=== PATIENT | male | born 1965 | race Caucasian/White ===

== ENCOUNTER 2018-10-05 16:58 | Inpatient (IN) ==
[2018-10-05] MEDS ORDERED: 0.9 % Sodium Chloride 1,000 ML ONE ×2 (17:30→21:11)
[2018-10-05 17:48] LABS: Bilirubin,Urine Negative (Negative); Blood,Urine Large (Negative); Clarity,Urine Cloudy (Clear); Color,Urine Yellow (Yellow); Glucose,Urine (UA) Normal (Normal); Ketones,Urine Trace mg/dL (Negative); Leukocyte Esterase,Urine Small (Negative); Nitrite,Urine Positive (Negative); Protein,Urine 100 mg/dL (Neg-Trace); Specific Gravity,Urine >= 1.030 (1.010-1.025); Urobilinogen,Urine Normal (Normal)
[2018-10-05] MEDS: 0.9 % Sodium Chloride 1,000 ML IVC SCH ×3 (17:50→22:50)
[2018-10-05] MEDS ORDERED: cefTRIAXone 2,000 MG in Water for inj. (sterile) 20 ML 20 ML IVP ONE (17:51)
[2018-10-05 17:56] LABS: Bacteria,Urine Many per hpf (None-Few); RBC,Urine 15-30 per hpf (0-3); Squamous Epithelial Cell,Urine Few per lpf (None-Few); WBC,Urine 15-30 per hpf (0-3)
[2018-10-05 17:58] LABS: Mucus,Urine Few (Few)
[2018-10-05 18:00] LABS: Amphetamine Screen,Urine Negative ng/mL (Cutoff=1000); Barbiturate Screen,Urine Negative ng/mL (Cutoff=200); Benzodiazepines Screen,Urine Negative ng/mL (Cutoff=200); Cannabinoid Screen,Urine Negative ng/mL (Cutoff = 50); Cocaine Screen,Urine Negative ng/mL (Cutoff= 300); Opiate Screen,Urine Negative ng/mL (Cutoff=300); Phencyclidine Screen,Urine Negative ng/mL (Cutoff=25)
--- NOTE | 2018-10-05 18:05 | Emergency Department Note ---
Disposition Clinical Impression: UTI (urinary tract infection) Qualifiers: Encounter type: initial encounter Sepsis Qualifiers: Sepsis type: sepsis due to unspecified organism Qualified Code(s): A41.9 - Sepsis, unspecified organism Disposition: Admitted As Inpatient Time of Disposition: 18:50 (Dr Bean accepted him) Weakness HPI - General Chief complaint: ED General Medical Stated complaint: lethargic, not self Time Seen by Provider: 10/05/18 17:29 Source: EMS Limitations: no limitations Nursing Notes Reviewed: Yes Vital Signs Reviewed: Yes - History of Present Illness HPI Narrative: Patient is a pleasant 53-year-old male with past medical history significant for HTN, DM, Dyslipidemia and arthritis who is presenting to [facility] Emergency Room with a chief complaint off altered mental status, was found unr esponsive at SNF. EMS found him hypoxic and tachypneaic so they gave albuterol inhaler. Pt in ER was challenged and remained pulse OX at 94% RA. He is noted to be febrile at 103. Patient is poor historian. Patient denies any eye pain or visual disturbances. There is no sore throat, nasal drainages or facial congestion. There is no chest pain, palpitations or racing heart. Pt also denies any shortness of breath, cough or chest congestion. There is no abdominal pain, nausea, vomiting or diarrhea. There is no urgency, frequency or dysuria. There is no muskulo-skeletal pain, arthralgia or back pain. Patient also denies any rash, edema or pruritus. There is no neurological manifestations, no headache, no vertigo or weakness. The patient also denies any anxiety, depression, hallucinations and has no homicidal or suicidal ideations. There is no polyuria, polydipsia or recent weight change. There is no easy bruising or bleeding. Review of other systems is otherwise negative except above. Pt Subjective Complaint: generalized weakness/fatigue Onset (ago): Just [facility] Duration: constant Location: generalized Migration: none Pain Severity: none Pain Scale: 0 - Related Data Home Medications Medication Instructions Recorded Confirmed Acetaminophen [Tylenol] 325 mg PO Q6HR PRN 02/20/17 10/05/18 Docusate [Colace] 100 mg PO BID PRN 02/20/17 10/05/18 Fluticasone Propionate Nasal 1 spray NS DAILY 02/20/17 10/05/18 [Flonase] Glimepiride [Amaryl] 2 mg PO BID 02/20/17 10/05/18 Lactulose 45 ml PO DAILY PRN 02/20/17 10/05/18 Loperamide HCl [Imodium A-D] 2 mg PO 8XD PRN 02/20/17 10/05/18 Loratadine [Allergy Relief] 10 mg PO DAILY 02/20/17 10/05/18 Metformin HCl [Glucophage] 1,000 mg PO BID 02/20/17 10/05/18 Metoprolol XL (24 HR) Succ [Toprol 50 mg PO DAILY 02/20/17 10/05/18 XL] Multivit-Min/Iron Fum/Folic AC 1 tab PO DAILY 02/20/17 10/05/18 [Ihxxs-Nrwbibh-Cyplznqf Tablet] Nitroglycerin [Nitrostat] 0.4 mg SL AD PRN 02/20/17 10/05/18 Oxycodone HCl [Oxycodone HCl ER] 15 mg PO Q8H PRN 02/20/17 10/05/18 Pravastatin Sodium [Pravachol] 40 mg PO DAILY 02/20/17 10/05/18 Sennosides [Senna] 8.6 mg PO DAILY 02/20/17 10/05/18 Tizanidine HCl [Zanaflex] 4 mg PO TID PRN 02/20/17 10/05/18 Trihexyphenidyl HCl 2 mg PO BID 02/20/17 10/05/18 Warfarin [Coumadin] 6 mg PO DAILY 02/20/17 10/05/18 Warfarin [Coumadin] 10 mg PO DAILY 02/20/17 10/05/18 carBAMazepine [Tegretol] 200 mg PO BID 02/20/17 10/05/18 hydrOXYzine HCl [Hydroxyzine HCl] 50 mg PO TID PRN 02/20/17 10/05/18 risperiDONE [RisperDAL] 0.5 mg PO DAILY 02/20/17 10/05/18 risperiDONE [RisperDAL] 0.25 mg PO DAILY 05/08/17 10/05/18 Betamethasone/Propylene Glyc 1 appl TP TID 05/22/17 10/05/18 [Betamethasone Dp Aug 0.05% Lot] Mag Hydrox/Aluminum Hyd/Simeth 15 ml PO Q4H PRN 05/22/17 10/05/18 [Cvs Antacid-Antigas Liquid] Loratadine [Claritin] 10 mg PO DAILY 11/13/17 10/05/18 Mag Hydrox/Aluminum Hyd/Simeth 15 ml PO Q4H PRN 11/13/17 10/05/18 [Cvs Antacid Plus Anti-Gas Liq] Omeprazole [PriLOSEC] 40 mg PO DAILY 11/13/17 10/05/18 Allergies Allergy/AdvReac Type Severity Reaction Status Date / Time No Known Allergies Allergy Verified 11/13/17 11:00 All systems ED: reviewed and negative except as stated. Review of Systems: As Per HPI Constitutional: Reports: fever. Denies: chills, weakness, weight change Eyes: Denies: eye pain, eye discharge, vision change ENT ED: Denies: ear pain, throat pain, dental pain, hearing loss, epistaxis, congestion, dysphagia Cardiovascular: Denies: chest pain, palpitations, dyspnea on exertion, edema, syncope Respiratory: Denies: cough, dyspnea, wheezes, hemoptysis, stridor Gastrointestinal: Denies: abdominal pain, nausea, vomiting, diarrhea, constipation, hematemesis, melena, hematochezia Genitourinary: Denies: urgency, dysuria, frequency, hematuria Musculoskeletal: Denies: back pain, neck pain, arthralgia, myalgia Integumentary: Denies: rash, abrasion, lesions Neurological: Reports: confusion. Denies: headache, weakness, numbness, paresthesias, abnormal gait, vertigo Psychiatric: Denies: anxiety, depression, suicidal thoughts, homicidal thoughts, auditory hallucinations, visual hallucinations Endocrine: Denies: fatigue Hematological/Lymphatic: Denies: easy bleeding, easy bruising Allergic/Immunologic: Denies: facial swelling, urticaria Past Medical History - Past Medical History Medical history: Reports: diabetes, hyperlipidemia, hypertension, other Surgical history: Reports: no surgical history Psychiatric history: Reports: schizophrenia - Social History Smoking Status: Never smoker Smokeless Tobacco Status: No Alcohol use: Reports: none Drug use: Reports: none Physical Exam - General Limitations: no limitations General appearance: lethargic - Head Head exam: atraumatic, normocephalic, normal inspection - Eye Eye exam: Present: normal appearance, PERRL, EOMI - Expanded Eye Exam Pupils: Left: reactive - ENT ENT exam: normal exam, normal oropharynx, mucous membranes moist - Expanded ENT Exam External ear exam: Present: normal external inspection Mouth exam: Present: normal external inspection Teeth exam: Present: normal inspection Throat exam: Present: normal inspection - Neck Neck exam: Present: normal inspection, full ROM, trachea midline - Chest Chest inspection: Present: normal inspection, symmetric chest wall rise - Respiratory Respiratory exam: Present: normal lung sounds bilaterally - Cardiovascular Cardiovascular exam: Present: regular rate, normal rhythm, normal heart sounds - Abdominal Exam Abdominal exam: Present: soft, Non-Tender. Absent: tenderness, distention, guarding, rebound, rigidity - Extremities Exam Extremities exam: Present: normal inspection, full ROM. Absent: tenderness, pedal edema - Expanded Upper Extremity Exam Shoulder exam: Present: normal inspection, full ROM Arm exam: Present: normal inspection, full ROM Elbow exam: Present: normal inspection, full ROM Forearm/Wrist exam: Present: normal inspection, full ROM Hand exam: Present: normal inspection, full ROM Vascular exam: Normal: capillary refill, radial pulse - Expanded Lower Extremity Exam Hip/Pelvis exam: Present: normal inspection, full ROM Upper leg exam: Present: normal inspection, full ROM Knee exam: Present: normal inspection, full ROM Lower leg exam: Present: normal inspection, full ROM Ankle exam: Present: normal inspection, full ROM Foot/toe exam: Present: normal inspection, full ROM Neurovascular/Tendon exam: Absent: motor deficit, sensory deficit, tendon deficit - Back Exam Back exam: Present: normal inspection, full ROM. Absent: tenderness - Neurological Exam Neurological exam: Present: alert, oriented X3 - Expanded Neurological Exam Patient oriented to: Present: person, place, time Coma Scale Eye Opening: Spontaneous Coma Scale Motor Response: Obeys Commands Coma Scale Verbal Response: Oriented Coma Scale Total: 15 - Psychiatric Psychiatric exam: Present: normal affect, normal mood - Skin Skin exam: Present: warm, dry, intact, normal color Course Vital Signs Temperature 103.7 F H 10/05/18 17:02 Pulse Rate 95 10/05/18 17:02 Respiratory Rate 18 10/05/18 17:02 Blood Pressure 131/66 10/05/18 17:02 O2 Sat by Pulse Oximetry 98 10/05/18 17:02 Temperature 101.7 F H 10/05/18 19:32 Pulse Rate 93 10/05/18 20:23 Respiratory Rate 18 10/05/18 20:23 Blood Pressure 125/68 10/05/18 20:23 O2 Sat by Pulse Oximetry 94 10/05/18 20:23 Oxygen Delivery Oxygen Delivery Room Air Weakness - Differential Diagnosis Differential Diagnosis: Likely: anemia, hypoglycemia, sepsis/infection, dehydr ation, medication effect, metabolic - Medical Records Medical records reviewed: Yes I reviewed the patient's medical records. - Lab Data Lab results reviewed: Yes I reviewed the patient's lab results. Result diagrams: 10/05/18 18:01 10/05/18 18:01 Lab Results 10/05/18 10/05/18 10/05/18 Range/Units 17:20 17:25 18:01 WBC 5.0 (4.3-11.1) K/mcL RBC 3.26 L (4.19-5.50) M/mcL Hgb 8.2 L (12.9-16.9) g/dL Hct 27.2 L (37.5-50.1) % MCV 83.4 (83.0-100.0) fL MCH 25.2 L (28.0-33.3) pg MCHC 30.1 L (31.6-35.5) g/dL RDW 20.9 H (11.5-14.5) % Plt Count 56 L (140-400) K/mcL MPV 10.8 (9.4-12.4) fL Immature Gran % 0.4 (0-4) % Seg Neutrophils % 81.8 % Lymphocytes % 7.8 % Monocytes % 8.0 % Eosinophils % 1.8 % Basophils % 0.2 % Neutrophils # 4.1 (1.6-8.9) K/mcL Lymphocytes # 0.4 L (0.6-4.6) K/mcL Monocytes # 0.4 (0.0-1.3) K/mcL Eosinophils # 0.1 (0.0-0.6) K/mcL Basophils # 0.0 (0.0-0.2) K/mcL PT (9.4-12.1) Seconds INR APTT (26.0-36.0) Seconds Sample Site ABG pH (7.32-7.45) pH Units ABG pCO2 (35-45) mmHg ABG pO2 (85-104) mmHg ABG HCO3 (21-27) mEq/L ABG Total CO2 (20-26) mEq/L ABG O2 Saturation (95-98) % ABG Base Excess (-2 to 3) mEq/L Andrae Test O2 Delivery Device Inspired O2 (1-15=lpm [id number]=%) Sodium (136-145) mEq/L Potassium (3.5-5.1) mEq/L Chloride (98-107) mEq/L Carbon Dioxide (23-29) mEq/L BUN (6-20) mg/dL Creatinine (0.70-1.30) mg/dL Est GFR ( Amer) (> 60) Est GFR (Non-Af Amer) (> 60) BUN/Creatinine Ratio (6-26) Glucose (70-105) mg/dL Calculated Osmolality (280-300) Lactic Acid (0.5-2.2) mmol/L Calcium (8.6-10.3) mg/dL Phosphorus (2.7-4.5) mg/dL Magnesium (1.6-2.6) mg/dL Total Bilirubin (0.3-1.0) mg/dL Direct Bilirubin (0.0-0.2) mg/dL Indirect Bilirubin (0.0-1.2) mg/dL AST (13-39) Units/L ALT (7-52) Units/L Alkaline Phosphatase (34-104) Units/L Troponin I (< 0.04) ng/mL Serum Total Protein (6.4-8.9) g/dL Albumin (3.5-5.7) g/dL Globulin (2.4-3.5) g/dL Albumin/Globulin Ratio (1.1-2.2) Urine Color Yellow (Yellow) Urine Clarity Cloudy A (Clear) Urine pH 7.0 (5.0-8.0) pH Units Ur Specific [place] >= 1.030 H (1.010-1.025) Urine Protein 100 H (Neg-Trace) mg/dL Urine Glucose (UA) Normal (Normal) mg/dL Urine Ketones Trace H (Negative) mg/dL Urine Blood Large H (Negative) Urine Nitrite Positive A (Negative) Urine Bilirubin Negative (Negative) Urine Urobilinogen Normal (Normal) mg/dL Ur Leukocyte Esterase Small H (Negative) Urine Microscopic RBC 15-30 H (0-3) per hpf Urine Microscopic WBC 15-30 H (0-3) per hpf Ur Squamous Epith Cells Few (None-Few) per lpf Urine Bacteria Many H (None-Few) per hpf Urine Mucus Few (Few) Ur Culture Indicated? YES A (NO) Urine Opiates Screen Negative (Sgpmga=902) ng/mL Ur Oxycodone Screen Positive H (Cutoff= 100) ng/mL Ur Barbiturates Screen Negative (Fysclq=215) ng/mL Ur Phencyclidine Scrn Negative (Cutoff=25) ng/mL Ur Amphetamines Screen Negative (Rvwdrn=4261) ng/mL U Benzodiazepines Scrn Negative (Eeszfa=792) ng/mL Urine Cocaine Screen Negative (Cutoff= 300) ng/mL U Marijuana (THC) Screen Negative (Cutoff = 50) ng/mL Ur Drug Screen Interp See Below 10/05/18 10/05/18 10/05/18 Range/Units 18:01 18:01 18:01 WBC (4.3-11.1) K/mcL RBC (4.19-5.50) M/mcL Hgb (12.9-16.9) g/dL Hct (37.5-50.1) % MCV (83.0-100.0) fL MCH (28.0-33.3) pg MCHC (31.6-35.5) g/dL RDW (11.5-14.5) % Plt Count (140-400) K/mcL MPV (9.4-12.4) fL Immature Gran % (0-4) % Seg Neutrophils % % Lymphocytes % % Monocytes % % Eosinophils % % Basophils % % Neutrophils # (1.6-8.9) K/mcL Lymphocytes # (0.6-4.6) K/mcL Monocytes # (0.0-1.3) K/mcL Eosinophils # (0.0-0.6) K/mcL Basophils # (0.0-0.2) K/mcL PT 16.2 H (9.4-12.1) Seconds INR 1.4 APTT 26.5 (26.0-36.0) Seconds Sample Site ABG pH (7.32-7.45) pH Units ABG pCO2 (35-45) mmHg ABG pO2 (85-104) mmHg ABG HCO3 (21-27) mEq/L ABG Total CO2 (20-26) mEq/L ABG O2 Saturation (95-98) % ABG Base Excess (-2 to 3) mEq/L Andrea Test O2 Delivery Device Inspired O2 (1-15=lpm [id number]=%) Sodium 138 (136-145) mEq/L Potassium 3.6 (3.5-5.1) mEq/L Chloride 104 (98-107) mEq/L Carbon Dioxide 26 (23-29) mEq/L BUN 8 (6-20) mg/dL Creatinine 0.72 (0.70-1.30) mg/dL Est GFR ( Amer) > 60 (> 60) Est GFR (Non-Af Amer) > 60 (> 60) BUN/Creatinine Ratio 11 (6-26) Glucose 125 H (70-105) mg/dL Calculated Osmolality 286 (280-300) Lactic Acid 1.2 (0.5-2.2) mmol/L Calcium 8.1 L (8.6-10.3) mg/dL Phosphorus 1.4 L (2.7-4.5) mg/dL Magnesium 1.6 (1.6-2.6) mg/dL Total Bilirubin 0.6 (0.3-1.0) mg/dL Direct Bilirubin 0.1 (0.0-0.2) mg/dL Indirect Bilirubin 0.5 (0.0-1.2) mg/dL AST 21 (13-39) Units/L ALT 16 (7-52) Units/L Alkaline Phosphatase 66 (34-104) Units/L Troponin I < 0.03 (< 0.04) ng/mL Serum Total Protein 6.0 L (6.4-8.9) g/dL Albumin 3.5 (3.5-5.7) g/dL Globulin 2.5 (2.4-3.5) g/dL Albumin/Globulin Ratio 1.4 (1.1-2.2) Urine Color (Yellow) Urine Clarity (Clear) Urine pH (5.0-8.0) pH Units Ur Specific [place] (1.010-1.025) Urine Protein (Neg-Trace) mg/dL Urine Glucose (UA) (Normal) mg/dL Urine Ketones (Negative) mg/dL Urine Blood (Negative) Urine Nitrite (Negative) Urine Bilirubin (Negative) Urine Urobilinogen (Normal) mg/dL Ur Leukocyte Esterase (Negative) Urine Microscopic RBC (0-3) per hpf Urine Microscopic WBC (0-3) per hpf Ur Squamous Epith Cells (None-Few) per lpf Urine Bacteria (None-Few) per hpf Urine Mucus (Few) Ur Culture Indicated? (NO) Urine Opiates Screen (Zlfipp=759) ng/mL Ur Oxycodone Screen (Cutoff= 100) ng/mL Ur Barbiturates Screen (Mvpuwq=069) ng/mL Ur Phencyclidine Scrn (Cutoff=25) ng/mL Ur Amphetamines Screen (Mowsdb=2002) ng/mL U Benzodiazepines Scrn (Dkbvkd=127) ng/mL Urine Cocaine Screen (Cutoff= 300) ng/mL U Marijuana (THC) Screen (Cutoff = 50) ng/mL Ur Drug Screen Interp 10/05/18 Range/Units 18:15 WBC (4.3-11.1) K/mcL RBC (4.19-5.50) M/mcL Hgb (12.9-16.9) g/dL Hct (37.5-50.1) % MCV (83.0-100.0) fL MCH (28.0-33.3) pg MCHC (31.6-35.5) g/dL RDW (11.5-14.5) % Plt Count (140-400) K/mcL MPV (9.4-12.4) fL Immature Gran % (0-4) % Seg Neutrophils % % Lymphocytes % % Monocytes % % Eosinophils % % Basophils % % Neutrophils # (1.6-8.9) K/mcL Lymphocytes # (0.6-4.6) K/mcL Monocytes # (0.0-1.3) K/mcL Eosinophils # (0.0-0.6) K/mcL Basophils # (0.0-0.2) K/mcL PT (9.4-12.1) Seconds INR APTT (26.0-36.0) Seconds Sample Site R Brach ABG pH 7.41 (7.32-7.45) pH Units ABG pCO2 40 (35-45) mmHg ABG pO2 77 L (85-104) mmHg ABG HCO3 25 (21-27) mEq/L ABG Total CO2 27 H (20-26) mEq/L ABG O2 Saturation 95 (95-98) % ABG Base Excess 1 (-2 to 3) mEq/L Andrea Test N/A O2 Delivery Device Cannula Inspired O2 2.0 (1-15=lpm [id number]=%) Sodium (136-145) mEq/L Potassium (3.5-5.1) mEq/L Chloride (98-107) mEq/L Carbon Dioxide (23-29) mEq/L BUN (6-20) mg/dL Creatinine (0.70-1.30) mg/dL Est GFR ( Amer) (> 60) Est GFR (Non-Af Amer) (> 60) BUN/Creatinine Ratio (6-26) Glucose (70-105) mg/dL Calculated Osmolality (280-300) Lactic Acid (0.5-2.2) mmol/L Calcium (8.6-10.3) mg/dL Phosphorus (2.7-4.5) mg/dL Magnesium (1.6-2.6) mg/dL Total Bilirubin (0.3-1.0) mg/dL Direct Bilirubin (0.0-0.2) mg/dL Indirect Bilirubin (0.0-1.2) mg/dL AST (13-39) Units/L ALT (7-52) Units/L Alkaline Phosphatase (34-104) Units/L Troponin I (< 0.04) ng/mL Serum Total Protein (6.4-8.9) g/dL Albumin (3.5-5.7) g/dL Globulin (2.4-3.5) g/dL Albumin/Globulin Ratio (1.1-2.2) Urine Color (Yellow) Urine Clarity (Clear) Urine pH (5.0-8.0) pH Units Ur Specific [place] (1.010-1.025) Urine Protein (Neg-Trace) mg/dL Urine Glucose (UA) (Normal) mg/dL Urine Ketones (Negative) mg/dL Urine Blood (Negative) Urine Nitrite (Negative) Urine Bilirubin (Negative) Urine Urobilinogen (Normal) mg/dL Ur Leukocyte Esterase (Negative) Urine Microscopic RBC (0-3) per hpf Urine Microscopic WBC (0-3) per hpf Ur Squamous Epith Cells (None-Few) per lpf Urine Bacteria (None-Few) per hpf Urine Mucus (Few) Ur Culture Indicated? (NO) Urine Opiates Screen (Slslka=440) ng/mL Ur Oxycodone Screen (Cutoff= 100) ng/mL Ur Barbiturates Screen (Kxockt=650) ng/mL Ur Phencyclidine Scrn (Cutoff=25) ng/mL Ur Amphetamines Screen (Fcfkvp=5239) ng/mL U Benzodiazepines Scrn (Jriyjt=298) ng/mL Urine Cocaine Screen (Cutoff= 300) ng/mL U Marijuana (THC) Screen (Cutoff = 50) ng/mL Ur Drug Screen Interp - Radiology Data Radiology results reviewed: Yes I reviewed the patient's radiology results. Negative CXR - EKG Data EKG attestation: Yes I reviewed and interpreted this EKG. EKG shows normal: sinus rhythm Rate: normal Rhythm: NSR
[2018-10-05 18:18] LABS: ABG Base Excess 1 mEq/L (-2 to 3); ABG HCO3 25 mEq/L (21-27); ABG Oxygen Saturation 95 % (95-98); ABG PCO2 40 mmHg (35-45); ABG PH 7.41 pH Units (7.32-7.45); ABG PO2 77 mmHg (85-104); ABG TCO2 27 mEq/L (20-26)
[2018-10-05 18:18] LABS: Basophils % 0.2 %; Eosinophils # 0.1 K/mcL (0.0-0.6); Eosinophils % 1.8 %; Hematocrit 27.2 % (37.5-50.1); Hemoglobin 8.2 g/dL (12.9-16.9); Immature Granulocytes % 0.4 % (0-4); Lymphocytes # 0.4 K/mcL (0.6-4.6); Lymphocytes % 7.8 %; Mean Corpuscular HGB Conc 30.1 g/dL (31.6-35.5); Mean Corpuscular Hemoglobin 25.2 pg (28.0-33.3); Mean Corpuscular Volume 83.4 fL (83.0-100.0); Mean Platelet Volume 10.8 fL (9.4-12.4); Monocytes # 0.4 K/mcL (0.0-1.3); Neutrophils # 4.1 K/mcL (1.6-8.9); Red Blood Count 3.26 M/mcL (4.19-5.50); Red Cell Distribution Width 20.9 % (11.5-14.5); Segmented Neutrophils % 81.8 %
[2018-10-05 18:20] LABS: Platelet Count 56 K/mcL (140-400)
[2018-10-05 18:26] LABS: INR 1.4; Prothrombin Time 16.2 Seconds (9.4-12.1)
[2018-10-05 18:28] LABS: Activated Partial Thrombo Time 26.5 Seconds (26.0-36.0)
[2018-10-05 18:37] LABS: Alanine Aminotransferase 16 Units/L (7-52); Albumin 3.5 g/dL (3.5-5.7); Albumin/Globulin Ratio 1.4 (1.1-2.2); Alkaline Phosphatase 66 Units/L (34-104); Aspartate Amino Transferase 21 Units/L (13-39); BUN/Creatinine Ratio 11 (6-26); Bilirubin,Direct 0.1 mg/dL (0.0-0.2); Bilirubin,Indirect 0.5 mg/dL (0.0-1.2); Bilirubin,Total 0.6 mg/dL (0.3-1.0); Blood Urea Nitrogen 8 mg/dL (6-20); Calcium 8.1 mg/dL (8.6-10.3); Carbon Dioxide 26 mEq/L (23-29); Chloride 104 mEq/L (98-107); Globulin 2.5 g/dL (2.4-3.5); Glucose 125 mg/dL (70-105); Magnesium 1.6 mg/dL (1.6-2.6); Osmolality,Calculated 286 (280-300); Phosphorous 1.4 mg/dL (2.7-4.5); Potassium 3.6 mEq/L (3.5-5.1); Sodium 138 mEq/L (136-145); Troponin I < 0.03 ng/mL (< 0.04); eGFR For Non-African Americans > 60 (> 60)
[2018-10-05] MEDS ORDERED: Naloxone 0.4 MG/ML INJ IVP PRN ×3 (19:07→21:11)
[2018-10-05] MEDS ORDERED: Nitroglycerin 0.4 MG TAB.SUBL SL PRN (21:11)
[2018-10-05] MEDS ORDERED: Mag Hydrox/Al Hydrox/Simeth 30 ML UDC PO PRN (21:11)
[2018-10-05] MEDS ORDERED: Lactulose 200 GM/300 ML (for enema) RC PRN (21:11)
[2018-10-05] MEDS ORDERED: Acetaminophen 325 MG TABLET PO PRN (21:11)
[2018-10-05] MEDS ORDERED: MOM Conc 10 ML UD.LIQ PO PRN (21:11)
[2018-10-05] MEDS: *HR* Glimepiride 2 MG TABLET PO SCH (22:34)
[2018-10-05] MEDS: carBAMazepine 200 MG TABLET PO SCH (22:49)
[2018-10-06] MEDS ORDERED: Lactulose 200 GM, Sodium Chloride IRRigation 700 ML RC PRN (00:16)
[2018-10-06] MEDS ORDERED: hydrOXYzine pamoate 25 MG CAPSULE PO PRN (00:19)
[2018-10-06] MEDS ORDERED: tiZANidine 4 MG TABLET PO PRN (00:28)
[2018-10-06] MEDS ORDERED: *HR* OxyCODONE Immed Rel 15 MG TABLET PO PRN (00:36)
[2018-10-06] MEDS: PROPYLENE GLYC TP SCH ×4 (01:14→22:53)
[2018-10-06] MEDS: BETAMETHASONE TP SCH ×4 (01:14→22:53)
[2018-10-06] MEDS: *HR* Metformin 500 MG TABLET PO SCH ×3 (05:24→22:52)
[2018-10-06] MEDS ORDERED: *HR* Warfarin 10 MG TABLET PO SCH (09:00)
[2018-10-06] MEDS ORDERED: Loratadine 10 MG TABLET PO SCH (09:00)
[2018-10-06] MEDS ORDERED: *HR* Warfarin 3 MG TABLET PO SCH (09:00)
[2018-10-06] MEDS: Loratadine 10 MG TABLET PO SCH (09:53)
[2018-10-06] MEDS: Multivit/Ca/Min/Fe/FA 1 TAB TABLET PO SCH (09:53)
[2018-10-06] MEDS: Metoprolol XL (24 HR) Succ 50 MG TAB.ER.24H PO SCH (09:53)
[2018-10-06] MEDS: carBAMazepine 200 MG TABLET PO SCH ×2 (09:53→22:40)
[2018-10-06] MEDS: *HR* Rivaroxaban 10 MG TABLET PO SCH (09:53)
[2018-10-06] MEDS: *HR* Glimepiride 2 MG TABLET PO SCH ×2 (09:54→22:52)
[2018-10-06] MEDS: risperiDONE 0.25 MG TABLET PO SCH ×2 (09:54→10:57)
[2018-10-06] MEDS: Fluticasone Propionate Nasal 50 MCG/SPRAY BOTTLE NS SCH (09:59)
[2018-10-06] MEDS: Sennosides 8.6 MG TABLET PO SCH (09:59)
[2018-10-06] MEDS ORDERED: Ibuprofen 600 MG TABLET PO ONE (10:47)
[2018-10-06] MEDS ORDERED: *HR* Dextrose 50 % in Water (Syg) 50 ML SYRINGE IVP PRN (10:54)
[2018-10-06] MEDS ORDERED: D5% in Water 1,000 ML IVC PRN (10:54)
[2018-10-06] MEDS ORDERED: Dextrose Gel 15 GM/37.5 ML TUBE PO PRN ×2 (10:54)
[2018-10-06] MEDS: Insulin LISPRO 300 UNITS/3 ML VIAL SQ SCH ×2 (11:16→15:48)
[2018-10-06 13:30] LABS: Basophils % 0.2 %; Eosinophils # 0.1 K/mcL (0.0-0.6); Eosinophils % 0.9 %; Immature Granulocytes % 0.7 % (0-4); Lymphocytes # 0.6 K/mcL (0.6-4.6); Lymphocytes % 9.5 %; Mean Corpuscular HGB Conc 29.6 g/dL (31.6-35.5); Mean Corpuscular Hemoglobin 24.6 pg (28.0-33.3); Mean Corpuscular Volume 83.1 fL (83.0-100.0); Mean Platelet Volume 10.1 fL (9.4-12.4); Monocytes # 0.3 K/mcL (0.0-1.3); Monocytes % 5.9 %; Neutrophils # 4.8 K/mcL (1.6-8.9); Red Blood Count 3.25 M/mcL (4.19-5.50); Red Cell Distribution Width 22.1 % (11.5-14.5); Segmented Neutrophils % 82.8 %
[2018-10-06 13:31] LABS: Platelet Count 52 K/mcL (140-400)
--- NOTE | 2018-10-06 13:39 | Internal Med History&Physical ---
Date of Encounter: 10/06/18 Time of Encounter: 12:30 Assessment and Plan (1) UTI (urinary tract infection) Current visit: Yes Status: Acute Rocephin was given empirically in emergency room. Urine culture was ordered. Continue Rocephin with lactobacillus. Qualifiers: Urinary tract infection type: site unspecified Hematuria presence: with hematuria Qualified Code(s): N39.0 - Urinary tract infection, site not specified; R31.9 - Hematuria, unspecified (2) Anemia Current visit: Yes Status: Acute Order anemia testing. Monitor CBC. Qualifiers: Anemia type: unspecified type Qualified Code(s): D64.9 - Anemia, unspecified (3) DM type 2 (diabetes mellitus, type 2) Current visit: Yes Status: Chronic Hemoglobin A1c was 6.2% on 08/07/2018. Continue Glucophage and glimepiride. Order Accu-Cheks with SSI. Qualifiers: Diabetes mellitus prison insulin use: without intermediate accountant use Diabetes mellitus complication status: without complication Qualified Code(s): E11.9 - Type 2 diabetes mellitus without complications (4) Thrombocytopenia Current visit: No Status: Chronic Platelet count has been consistently low since 2013. Doubt if 202K on 10/14/2017 was accurate. (5) Edema Current visit: Yes Status: Acute BN peptide was ordered. Qualifiers: Edema type: unspecified Qualified Code(s): R60.9 - Edema, unspecified Internal Medicine - H&P: HPI Chief complaint: Fever, tachypnea Admitted From: Emergency Dept Plans for Post Hospital Care: Home History of present illness: Mr. Rojo is a 53 year old male who was sent from a local SNF after staff reported him to have altered mental status with decreased responsiveness. The emergency room report states EMS found him hypoxic and to. He was evaluated in emergency room and was found to have anemia, normal WBC but left shift, and possible UTI. [facility] for ongoing care needs. He is a fair to poor historian and cannot give reliable additional significant history. Past Med Surg Social Fam HX - Past Medical History Medical history: diabetes, hyperlipidemia, hypertension, other Additional medical history: factor V. tremors. anemia. DVT Psychiatric history: schizophrenia - Past Surgical History Surgical History: no surgical history Additional surgical history: perlita filter - Social History Smoking Status: Never smoker Smokeless Tobacco Status: No Alcohol use: none Drug use: none Internal Medicine - H&P: Meds Acetaminophen [Tylenol] 325 mg PO Q6HR PRN 02/20/17 [History] Docusate [Colace] 100 mg PO BID PRN 02/20/17 [History] Fluticasone Propionate Nasal [Flonase] 1 spray NS DAILY 02/20/17 [History] Glimepiride [Amaryl] 2 mg PO BID 02/20/17 [History] Lactulose 45 ml PO DAILY PRN 02/20/17 [History] Loperamide HCl [Imodium A-D] 2 mg PO 8XD PRN 02/20/17 [History] Loratadine [Allergy Relief] 10 mg PO DAILY 02/20/17 [History] Metformin HCl [Glucophage] 1,000 mg PO BID 02/20/17 [History] Metoprolol XL (24 HR) Succ [Toprol XL] 50 mg PO DAILY 02/20/17 [History] Multivit-Min/Iron Fum/Folic AC [Tmegx-Zykyzmu-Rqqniuak Tablet] 1 tab PO DAILY 02/20/17 [History] Nitroglycerin [Nitrostat] 0.4 mg SL AD PRN 02/20/17 [History] Oxycodone HCl [Oxycodone HCl ER] 15 mg PO Q8H PRN 02/20/17 [History] Pravastatin Sodium [Pravachol] 40 mg PO DAILY 02/20/17 [History] Sennosides [Senna] 8.6 mg PO DAILY 02/20/17 [History] Tizanidine HCl [Zanaflex] 4 mg PO TID PRN 02/20/17 [History] Trihexyphenidyl HCl 2 mg PO BID 02/20/17 [History] Warfarin [Coumadin] 6 mg PO DAILY 02/20/17 [History] Warfarin [Coumadin] 10 mg PO DAILY 02/20/17 [History] carBAMazepine [Tegretol] 200 mg PO BID 02/20/17 [History] hydrOXYzine HCl [Hydroxyzine HCl] 50 mg PO TID PRN 02/20/17 [History] risperiDONE [RisperDAL] 0.5 mg PO DAILY 02/20/17 [History] risperiDONE [RisperDAL] 0.25 mg PO DAILY 05/08/17 [History] Betamethasone/Propylene Glyc [Betamethasone Dp Aug 0.05% Lot] 1 appl TP TID 05/22/17 [History] Mag Hydrox/Aluminum Hyd/Simeth [Cvs Antacid-Antigas Liquid] 15 ml PO Q4H PRN 05/22/17 [History] Loratadine [Claritin] 10 mg PO DAILY 11/13/17 [History] Mag Hydrox/Aluminum Hyd/Simeth [Cvs Antacid Plus Anti-Gas Liq] 15 ml PO Q4H PRN 11/13/17 [History] Omeprazole [PriLOSEC] 40 mg PO DAILY 11/13/17 [History] Allergy/AdvReac Type Severity Reaction Status Date / Time No Known Allergies Allergy Verified 11/13/17 11:00 All Systems PM: A 10-system review of systems was performed and is negative for pertinent fin dings except as documented above in the HPI. Review of systems: Review of systems is of uncertain accuracy since the patient is a fair to poor historian. Gen.: He states his weight has been stable the past few months Cardiovascular: He has history of hypertension. He has history of DVT but does not recall details. He denies [place] heart failure angina or pulmonary embolus Respiratory: He states he is a lifelong nonsmoker and denies chronic lung disease GI: He states he had abdominal pain without vomiting or diarrhea at the [place] [facility]. He denies disorders of his liver gallbladder or exocrine pancreas : He denies hematuria dysuria or kidney stones Neurologic: He is uncertain if he has history of seizures. He denies large distribution strokes. Endocrine: He has history of DM 2 and hyperlipidemia. He denies thyroid disease. Hematology/oncology: He was unaware he had anemia on all labs since March 2018. He is uncertain if he has history of cancer. Psychiatric: He has history of psychosis but he cannot give details. [place] skeletal: He states he has arthritis but denies gout or other bone joint or muscle disorders. - Constitutional Vitals: Temp Pulse Resp BP Pulse Ox 104 F H 106 16 126/61 91 10/06/18 10:55 10/06/18 10:12 10/06/18 10:12 10/06/18 10:12 10/06/18 10:12 Exam: Gen.: He is a well-developed well-nourished male sitting on the side of bed who appears in no acute distress. He answers questions but accuracy is uncertain HEENT: Head is atraumatic and normocephalic. Eyes: EOMI. There is no scleral icterus. Mouth: Mucosa is moist. Neck: Supple and nontender. There is no thyromegaly or adenopathy noted. Heart: Regular without murmurs gallops or ectopics Lungs: No wheezes or crackles are heard. Abdomen: Soft and nontender. No masses or guarding are noted. Extremities: He has significant chronic venous stasis pigmentation changes of his right lower leg. There are minimal changes in his left lower leg. There is 2+ edema of the dorsum of the right foot and 1-2+ edema of the dorsum the left foot. There is 2+ pitting edema of the lower anterior shins bilaterally. Neurologic: Mental status: He is talkative but a fair to poor historian. Cran ial nerves: Smile is symmetric. Forehead wrinkles bilaterally. Tongue protrudes midline. EOMI. Motor: There is no pronator drift. Cerebellar: Finger to nose is intact bilaterally. Skin: Warm and dry Internal Med - H&P Results - Labs CBC & Chem 7: 10/06/18 13:23 10/05/18 18:01 Labs: Short CBC 10/05/18 10/06/18 Range/Units 18:01 13:23 WBC 5.0 5.8 (4.3-11.1) K/mcL Hgb 8.2 L 8.0 L (12.9-16.9) g/dL Hct 27.2 L 27.0 L (37.5-50.1) % Plt Count 56 L 52 L (140-400) K/mcL Neutrophils # 4.1 4.8 (1.6-8.9) K/mcL BMP 10/05/18 18:01 Sodium 138 Potassium 3.6 Chloride 104 Carbon Dioxide 26 BUN 8 Creatinine 0.72 Glucose 125 H Calcium 8.1 L Cardiac Enzymes 10/05/18 Range/Units 18:01 Troponin I < 0.03 (< 0.04) ng/mL Liver Function 10/05/18 Range/Units 18:01 Total Bilirubin 0.6 (0.3-1.0) mg/dL Direct Bilirubin 0.1 (0.0-0.2) mg/dL AST 21 (13-39) Units/L ALT 16 (7-52) Units/L Alkaline Phosphatase 66 (34-104) Units/L Albumin 3.5 (3.5-5.7) g/dL Urine 10/05/18 Range/Units 17:25 Urine Color Yellow (Yellow) Urine Clarity Cloudy A (Clear) Urine pH 7.0 (5.0-8.0) pH Units Ur Specific [place] >= 1.030 H (1.010-1.025) Urine Protein 100 H (Neg-Trace) mg/dL Urine Glucose (UA) Normal (Normal) mg/dL - ABG Interpretation ABG results: 10/05/18 18:15 ABG pH 7.41 ABG pCO2 40 ABG pO2 77 L ABG HCO3 25 ABG Total CO2 27 H ABG O2 Saturation 95 ABG Base Excess 1 - Impressions ITS Impressions Chest X-Ray 10/05/18 17:36 IMPRESSION: No acute abnormality. Chronic elevation of the left hemidiaphragm may be due to paresis. D/ / 10/05/2018 18:29:55 Jamar Fernandez MD / [email or web address] Interpreting Provider: Jamar Fernandez MD
[2018-10-06 13:52] LABS: Phosphorous 1.4 mg/dL (2.7-4.5)
[2018-10-06] MEDS ORDERED: Acetaminophen 325 MG TABLET PO PRN (14:01)
[2018-10-06] MEDS: cefTRIAXone 1,000 MG in Water for inj. (sterile) 20 ML 10 ML IVP SCH (15:49)
[2018-10-06] MEDS: 0.9 % Sodium Chloride 1,000 ML IVC SCH (16:02)
[2018-10-06 17:35] LABS: Folate 12.4 ng/mL (3.0-16.0)
[2018-10-06 20:35] LABS: Ferritin 70 ng/mL (20-250); Iron < 10 mcg/dL (65-175); Transferrin 249 mg/dL (203-362)
[2018-10-06] MEDS: Lactobacillus 1 EACH CAP.SPRINK PO SCH (22:40)
[2018-10-07 06:38] LABS: Basophils % 0.3 %; Eosinophils # 0.2 K/mcL (0.0-0.6); Eosinophils % 2.8 %; Hematocrit 29.5 % (37.5-50.1); Hemoglobin 8.5 g/dL (12.9-16.9); Immature Granulocytes % 0.6 % (0-4); Lymphocytes # 0.7 K/mcL (0.6-4.6); Lymphocytes % 9.9 %; Mean Corpuscular HGB Conc 28.8 g/dL (31.6-35.5); Mean Corpuscular Hemoglobin 24.5 pg (28.0-33.3); Mean Platelet Volume 10.7 fL (9.4-12.4); Monocytes # 0.5 K/mcL (0.0-1.3); Monocytes % 7.6 %; Neutrophils # 5.2 K/mcL (1.6-8.9); Red Blood Count 3.47 M/mcL (4.19-5.50); Red Cell Distribution Width 22.2 % (11.5-14.5); Segmented Neutrophils % 78.8 %
[2018-10-07 06:40] LABS: Platelet Count 59 K/mcL (140-400)
[2018-10-07 07:07] LABS: Anisocytosis 2+ (Not Present); Hypochromasia Present (Not Present)
[2018-10-07 07:11] LABS: Poikilocytosis 1+ (Not Present); Polychromasia 2+ (Not Present)
[2018-10-07 07:13] LABS: Platelet Estimate Marked Decrease (Normal)
[2018-10-07] MEDS: Insulin LISPRO 300 UNITS/3 ML VIAL SQ SCH ×3 (07:47→17:28)
[2018-10-07] MEDS: Loratadine 10 MG TABLET PO SCH (07:58)
[2018-10-07] MEDS: Lactobacillus 1 EACH CAP.SPRINK PO SCH ×2 (07:58→21:21)
[2018-10-07] MEDS: risperiDONE 0.25 MG TABLET PO SCH ×2 (07:58)
[2018-10-07] MEDS: Metoprolol XL (24 HR) Succ 50 MG TAB.ER.24H PO SCH (07:58)
[2018-10-07] MEDS: *HR* Metformin 500 MG TABLET PO SCH ×2 (07:58→21:20)
[2018-10-07] MEDS: cefTRIAXone 1,000 MG in Water for inj. (sterile) 20 ML 10 ML IVP SCH (07:59)
[2018-10-07] MEDS: Multivit/Ca/Min/Fe/FA 1 TAB TABLET PO SCH (07:59)
[2018-10-07] MEDS: *HR* Rivaroxaban 10 MG TABLET PO SCH (07:59)
[2018-10-07] MEDS: Sennosides 8.6 MG TABLET PO SCH (07:59)
[2018-10-07] MEDS: *HR* Glimepiride 2 MG TABLET PO SCH ×2 (07:59→21:20)
[2018-10-07] MEDS: carBAMazepine 200 MG TABLET PO SCH ×2 (07:59→21:20)
--- NOTE | 2018-10-07 10:20 | Internal Med Progress Note ---
Date of Encounter: 10/07/18 Time of Encounter: 10:12 - Assessment and plan (1) UTI (urinary tract infection) Current Visit: Yes Status: Acute Assessment and plan: October 07. Urine culture report pending. Continue empiric Rocephin with lactobacillus. Qualifiers: Urinary tract infection type: site unspecified Hematuria presence: with hematuria Qualified Code(s): N39.0 - Urinary tract infection, site not specified; R31.9 - Hematuria, unspecified (2) Anemia Current Visit: Yes Status: Acute Assessment and plan: October 07. Anemia testing showed iron < 10, transferrin 249, ferritin 70, B12 515, and folate 12.4. Will order iron sucrose. Qualifiers: Anemia type: unspecified type Qualified Code(s): D64.9 - Anemia, unspecified (3) DM type 2 (diabetes mellitus, type 2) Current Visit: Yes Status: Chronic Assessment and plan: October 07. Hemoglobin A1c was 6.2% on 08/07/2018. Continue Glucophage and glimepiride. Accu-Cheks are acceptable. Qualifiers: Diabetes mellitus mcc insulin use: without intermission coordinator use Diabetes mellitus complication status: without complication Qualified Code(s): E11.9 - Type 2 diabetes mellitus without complications (4) Thrombocytopenia Current Visit: No Status: Chronic Assessment and plan: October 07. Monitor platelet count. (5) Edema Current Visit: Yes Status: Acute Assessment and plan: October 07. BN peptide minimally elevated at 138. Continue to monitor. Qualifiers: Edema type: unspecified Qualified Code(s): R60.9 - Edema, unspecified (6) Hypophosphatemia Current Visit: Yes Status: Acute Assessment and plan: October 07. Improved. Continue Neutra-Phos and monitor labs. - Subjective Interval history: October 07. He has no new complaints and feels better. - Constitutional Vitals: Temp Pulse Resp BP Pulse Ox 98.8 F 96 20 134/63 92 10/07/18 07:37 10/07/18 07:37 10/07/18 07:37 10/07/18 07:37 10/07/18 07:37 Exam: He is resting comfortably in bed and appears in no acute distress. His affect is overall cheerful. He does not appear dyspneic. Extremities show 1+ edema of the lower anterior shins bilaterally. I reviewed his medications and lab results. Internal Medicine: Result - Labs CBC & Chem 7: 10/07/18 05:43 10/05/18 18:01 Labs: Short CBC 18 10/07/18 Range/Units 13:23 05:43 WBC 5.8 6.5 (4.3-11.1) K/mcL Hgb 8.0 L 8.5 L (12.9-16.9) g/dL Hct 27.0 L 29.5 L (37.5-50.1) % Plt Count 52 L 59 L (140-400) K/mcL Neutrophils # 4.8 5.2 (1.6-8.9) K/mcL Urine 10/05/18 Range/Units 17:25 Urine Color Yellow (Yellow) Urine Clarity Cloudy A (Clear) Urine pH 7.0 (5.0-8.0) pH Units Ur Specific [place] >= 1.030 H (1.010-1.025) Urine Protein 100 H (Neg-Trace) mg/dL Urine Glucose (UA) Normal (Normal) mg/dL - ABG Interpretation ABG results: ABG ABG pH 7.41 pH Units (7.32-7.45) 10/05/18 18:15 ABG pCO2 40 mmHg (35-45) 10/05/18 18:15 ABG pO2 77 mmHg (85-104) L 10/05/18 18:15 ABG O2 Saturation 95 % (95-98) 10/05/18 18:15 PT/INR, D-dimer PT 16.2 Seconds (9.4-12.1) H 10/05/18 18:01 Consult Discharge Plan - Plan Referrals: NONE,PCP [Primary Care Provider] - 1 week
[2018-10-07] MEDS ORDERED: Iron Sucrose Complex 400 MG in 0.9 % Sodium Chloride 250 ML IVPB ONE (10:23)
[2018-10-07] MEDS: PROPYLENE GLYC TP SCH ×3 (10:32→21:21)
[2018-10-07] MEDS: BETAMETHASONE TP SCH ×3 (10:32→21:21)
[2018-10-07] MEDS: Fluticasone Propionate Nasal 50 MCG/SPRAY BOTTLE NS SCH (10:32)
--- NOTE | 2018-10-07 19:59 | Electrocardiograph Report ---
[place] [id number] Test Date: 2018-10-05 Pat Name: Melvin Rojo Department: [id number] Room: [facility] Gender: M Yarn Hauler: [id number] : 1965 Requested By: Bette Obando Order Number: [id number] Reading MD: Kaya Bernstein Measurements Intervals [place] Rate: 94 P: 1 NC: 145 QRS: 17 QRSD: 89 T: 23 QT: 332 QTc: 384 Interpretive Statements SINUS RHYTHM Electronically Signed On 10-07-2018 19:57:44 EST by Kaya Bernstein
[2018-10-08 06:40] LABS: Basophils % 0.5 %; Eosinophils # 0.2 K/mcL (0.0-0.6); Eosinophils % 4.5 %; Hematocrit 29.2 % (37.5-50.1); Hemoglobin 8.5 g/dL (12.9-16.9); Immature Granulocytes % 0.2 % (0-4); Lymphocytes # 0.5 K/mcL (0.6-4.6); Lymphocytes % 12.9 %; Mean Corpuscular HGB Conc 29.1 g/dL (31.6-35.5); Mean Corpuscular Hemoglobin 24.4 pg (28.0-33.3); Mean Corpuscular Volume 83.7 fL (83.0-100.0); Mean Platelet Volume 11.4 fL (9.4-12.4); Monocytes # 0.4 K/mcL (0.0-1.3); Monocytes % 9.1 %; Neutrophils # 3.1 K/mcL (1.6-8.9); Red Blood Count 3.49 M/mcL (4.19-5.50); Red Cell Distribution Width 21.8 % (11.5-14.5); Segmented Neutrophils % 72.8 %
[2018-10-08 06:42] LABS: Platelet Count 74 K/mcL (140-400)
[2018-10-08 07:08] VITALS: BP 117/66
[2018-10-08 07:12] LABS: Anisocytosis 2+ (Not Present); Microcytosis Present (Not Present); Ovalocytes 2+ (Not Present); Platelet Estimate Decreased (Normal)
[2018-10-08 07:13] LABS: Polychromasia 1+ (Not Present)
[2018-10-08] MEDS: *HR* Rivaroxaban 10 MG TABLET PO SCH (09:46)
[2018-10-08] MEDS: *HR* Glimepiride 2 MG TABLET PO SCH (09:46)
[2018-10-08] MEDS: *HR* Metformin 500 MG TABLET PO SCH (09:47)
[2018-10-08] MEDS: Sennosides 8.6 MG TABLET PO SCH (09:47)
[2018-10-08] MEDS: carBAMazepine 200 MG TABLET PO SCH (09:49)
--- NOTE | 2018-10-08 10:10 | Discharge Summary ---
Orders not resulted at time of discharge: Pending orders 10/05/18 18:35 Culture,Blood [BC] Stat Date of Encounter: 10/08/18 Time of Encounter: 10:00 - Discharge Diagnosis (1) UTI (urinary tract infection) Priority: Primary Status: Acute Qualifiers: Urinary tract infection type: site unspecified Hematuria presence: with hematuria Qualified Code(s): N39.0 - Urinary tract infection, site not specified; R31.9 - Hematuria, unspecified (2) Anemia Priority: Secondary Status: Acute Qualifiers: Anemia type: unspecified type Qualified Code(s): D64.9 - Anemia, unspecified (3) DM type 2 (diabetes mellitus, type 2) Priority: Secondary Status: Chronic Qualifiers: Diabetes mellitus alf insulin use: without alf use Diabetes mellitus complication status: without complication Qualified Code(s): E11.9 - Type 2 diabetes mellitus without complications (4) Thrombocytopenia Priority: Secondary Status: Chronic (5) Edema Priority: Secondary Status: Acute Qualifiers: Edema type: unspecified Qualified Code(s): R60.9 - Edema, unspecified (6) Hypophosphatemia Priority: Secondary Status: Acute Hospital course: Mr. Rojo is a 53 year old male who was sent from a local SNF after staff reported him to have altered mental status with decreased responsiveness. The emergency room report states EMS found him hypoxic and to. He was evaluated in emergency room and was found to have anemia, normal WBC but left shift, and possible UTI. He was admitted to [facility] floor for ongoing care needs. Initial orders written by the emergency room physician. I saw him on October 06 and performed the history and physical. He was started empirically on Rocephin through emergency room. Lactobacillus was added. Urine culture returned showing Escherichia coli with broad sensitivity. He spiked fevers intermittently during his hospital stay but the peak temperature gradually decreased. On October 08 he was asymptomatic and felt stable for discharge back to the SNF. He will continue with anabiotic and probiotic for 5 additional days. He was started on Neutra-Phos for hypophosphatemia. His serum phosphorus level improved to 2.1 by day of discharge. He will continue with Neutra-Phos for 5 additional days and a level will be checked in 5 days at the senior care. Anemia testing showed iron< 10, transferrin 249, ferritin 70, B12 515, and folate 12.4. He was given a dose of IV iron sucrose 400 mg. He will be started on oral ferrous sulfate with ascorbic acid upon discharge. His PCP can monitor labs. On October 08 he was stable for discharge back to [facility] [place]. He will follow with his PCP Dr. Jackson. - Time Spent with Patient Total time spent providing and/or coordinating discharge services: - Discharge Medications Prescriptions: Lactobacillus [Culturelle] 1 each PO BID 3 Days cap.sprink levoFLOXacin [Levaquin] 500 mg PO DAILY 3 Days tablet Phos-NaK [Neutra-Phos] 1 each PO BID 5 Days powd.pack Home Medications: Acetaminophen [Tylenol] 325 mg PO Q6HR PRN 02/20/17 [History] Docusate [Colace] 100 mg PO BID PRN 02/20/17 [History] Fluticasone Propionate Nasal [Flonase] 1 spray NS DAILY 02/20/17 [History] Glimepiride [Amaryl] 2 mg PO BID 02/20/17 [History] Lactulose 45 ml PO DAILY PRN 02/20/17 [History] Loperamide HCl [Imodium A-D] 2 mg PO 8XD PRN 02/20/17 [History] Loratadine [Allergy Relief] 10 mg PO DAILY 02/20/17 [History] Metformin HCl [Glucophage] 1,000 mg PO BID 02/20/17 [History] Metoprolol XL (24 HR) Succ [Toprol Xl] 50 mg PO DAILY 02/20/17 [History] Multivit-Min/Iron Fum/Folic AC [Rjxqa-Opujsax-Weltmwix Tablet] 1 tab PO DAILY 02/20/17 [History] Nitroglycerin [Nitrostat] 0.4 mg SL AD PRN 02/20/17 [History] Oxycodone HCl [Oxycodone HCl ER] 15 mg PO Q8H PRN 02/20/17 [History] Pravastatin Sodium [Pravachol] 40 mg PO DAILY 02/20/17 [History] Sennosides [Senna] 8.6 mg PO DAILY 02/20/17 [History] Tizanidine HCl [Zanaflex] 4 mg PO TID PRN 02/20/17 [History] Trihexyphenidyl HCl 2 mg PO BID 02/20/17 [History] Warfarin [Coumadin] 6 mg PO DAILY 02/20/17 [History] Warfarin [Coumadin] 10 mg PO DAILY 02/20/17 [History] carBAMazepine [Tegretol] 200 mg PO BID 02/20/17 [History] hydrOXYzine HCl [Hydroxyzine HCl] 50 mg PO TID PRN 02/20/17 [History] risperiDONE [RisperDAL] 0.5 mg PO DAILY 02/20/17 [History] risperiDONE [RisperDAL] 0.25 mg PO DAILY 05/08/17 [History] Betamethasone/Propylene Glyc [Betamethasone Dp Aug 0.05% Lot] 1 appl TP TID 05/22/17 [History] Mag Hydrox/Aluminum Hyd/Simeth [Cvs Antacid-Antigas Liquid] 15 ml PO Q4H PRN 05/22/17 [History] Mag Hydrox/Aluminum Hyd/Simeth [Cvs Antacid Plus Anti-Gas Liq] 15 ml PO Q4H PRN 11/13/17 [History] Omeprazole [PriLOSEC] 40 mg PO DAILY 11/13/17 [History] Lactobacillus [Culturelle] 1 each PO BID 3 Days cap.sprink 10/08/18 [Rx] Loratadine [Claritin] 10 mg PO DAILY PRN #0 10/08/18 [Rx] Phos-NaK [Neutra-Phos] 1 each PO BID 5 Days powd.pack 10/08/18 [Rx] levoFLOXacin [Levaquin] 500 mg PO DAILY 3 Days tablet 10/08/18 [Rx] Allergies/Adverse Reactions: Allergy/AdvReac Type Severity Reaction Status Date / Time No Known Allergies Allergy Verified 11/13/17 11:00 Date of admission: 10/06/18 18:18 Primary care physician: Avni Jackson M.D. Consults: 10/06/18 01:34 Consult to Structural Technician [CONS] Routine Reason for SW Consult: Patient is from [facility] - Constitutional Vitals: Temp Pulse Resp BP Pulse Ox 98.3 F 91 18 117/66 92 10/08/18 07:05 10/08/18 07:05 10/08/18 07:05 10/08/18 07:05 10/08/18 07:05 - Patient Status Disposition: Transfer SNF - Discharge Instructions Follow Up With: NONE,PCP [Primary Care Provider] - 1 week - Diet and Activity Activity: resume usual activities as tolerated Diet: advance to your usual diet
--- NOTE | 2018-10-08 10:18 | Physician Discharge Referral ---
ExtendedCare Referral Info Transfer To: [facility] Provider in Charge: Nitin Provider in Charge after Transfer: PCP (Manuel) - Diagnosis (1) UTI (urinary tract infection) Priority: Primary Status: Acute (2) Anemia Priority: Secondary Status: Acute (3) DM type 2 (diabetes mellitus, type 2) Priority: Secondary Status: Chronic (4) Thrombocytopenia Priority: Secondary Status: Chronic (5) Edema Priority: Secondary Status: Acute (6) Hypophosphatemia Priority: Secondary Status: Acute Prognosis: Good - Transfer Medications Prescriptions: Ascorbic Acid [C-500] 500 mg PO DAILY 365 Days tablet Ferrous Sulfate 325 mg PO DAILY 365 Days tablet Lactobacillus [Culturelle] 1 each PO BID 3 Days cap.sprink levoFLOXacin [Levaquin] 500 mg PO DAILY 3 Days tablet Phos-NaK [Neutra-Phos] 1 each PO BID 5 Days powd.pack Home Medications: Acetaminophen [Tylenol] 325 mg PO Q6HR PRN 02/20/17 [History] Docusate [Colace] 100 mg PO BID PRN 02/20/17 [History] Fluticasone Propionate Nasal [Flonase] 1 spray NS DAILY 02/20/17 [History] Glimepiride [Amaryl] 2 mg PO BID 02/20/17 [History] Lactulose 45 ml PO DAILY PRN 02/20/17 [History] Loperamide HCl [Imodium A-D] 2 mg PO 8XD PRN 02/20/17 [History] Loratadine [Allergy Relief] 10 mg PO DAILY 02/20/17 [History] Metformin HCl [Glucophage] 1,000 mg PO BID 02/20/17 [History] Metoprolol XL (24 HR) Succ [Toprol Xl] 50 mg PO DAILY 02/20/17 [History] Multivit-Min/Iron Fum/Folic AC [Mhktf-Nufokls-Yvhxuitg Tablet] 1 tab PO DAILY 02/20/17 [History] Nitroglycerin [Nitrostat] 0.4 mg SL AD PRN 02/20/17 [History] Oxycodone HCl [Oxycodone HCl ER] 15 mg PO Q8H PRN 02/20/17 [History] Pravastatin Sodium [Pravachol] 40 mg PO DAILY 02/20/17 [History] Sennosides [Senna] 8.6 mg PO DAILY 02/20/17 [History] Tizanidine HCl [Zanaflex] 4 mg PO TID PRN 02/20/17 [History] Trihexyphenidyl HCl 2 mg PO BID 02/20/17 [History] Warfarin [Coumadin] 6 mg PO DAILY 02/20/17 [History] Warfarin [Coumadin] 10 mg PO DAILY 02/20/17 [History] carBAMazepine [Tegretol] 200 mg PO BID 02/20/17 [History] hydrOXYzine HCl [Hydroxyzine HCl] 50 mg PO TID PRN 02/20/17 [History] risperiDONE [RisperDAL] 0.5 mg PO DAILY 02/20/17 [History] risperiDONE [RisperDAL] 0.25 mg PO DAILY 05/08/17 [History] Betamethasone/Propylene Glyc [Betamethasone Dp Aug 0.05% Lot] 1 appl TP TID 05/22/17 [History] Mag Hydrox/Aluminum Hyd/Simeth [Cvs Antacid-Antigas Liquid] 15 ml PO Q4H PRN 05/22/17 [History] Mag Hydrox/Aluminum Hyd/Simeth [Cvs Antacid Plus Anti-Gas Liq] 15 ml PO Q4H PRN 11/13/17 [History] Omeprazole [PriLOSEC] 40 mg PO DAILY 11/13/17 [History] Ascorbic Acid [C-500] 500 mg PO DAILY 365 Days tablet 10/08/18 [Rx] Ferrous Sulfate 325 mg PO DAILY 365 Days tablet 10/08/18 [Rx] Lactobacillus [Culturelle] 1 each PO BID 3 Days cap.sprink 10/08/18 [Rx] Loratadine [Claritin] 10 mg PO DAILY PRN #0 10/08/18 [Rx] Phos-NaK [Neutra-Phos] 1 each PO BID 5 Days powd.pack 10/08/18 [Rx] levoFLOXacin [Levaquin] 500 mg PO DAILY 3 Days tablet 10/08/18 [Rx] Allergies/Adverse Reactions: Allergy/AdvReac Type Severity Reaction Status Date / Time No Known Allergies Allergy Verified 11/13/17 11:00 - Respiratory Orders Smoking Cessation: Smoking cessation has been advised. For more information, call the [place] Tobacco Quit Line at 3-872-CFQD-NOW. CERTIFICATION: I certify that the transfer of the above named patient to an Extended Care Facility is necessary for the continuing treatment of the diagnosis listed. The above information is true and accurate reflection of patient's current condition. Confidential - Redisclosure prohibited without a patient's written consent.
[2018-10-08] MEDS: Loratadine 10 MG TABLET PO SCH (10:21)
[2018-10-08] MEDS: Insulin LISPRO 300 UNITS/3 ML VIAL SQ SCH (10:21)
[2018-10-08] MEDS: Lactobacillus 1 EACH CAP.SPRINK PO SCH (10:21)
[2018-10-08] MEDS: Fluticasone Propionate Nasal 50 MCG/SPRAY BOTTLE NS SCH (10:22)
[2018-10-08] MEDS: cefTRIAXone 1,000 MG in Water for inj. (sterile) 20 ML 10 ML IVP SCH (10:22)
[2018-10-08] MEDS: BETAMETHASONE TP SCH (10:22)
[2018-10-08] MEDS: risperiDONE 0.25 MG TABLET PO SCH ×2 (10:22)
[2018-10-08] MEDS: PROPYLENE GLYC TP SCH (10:22)
[2018-10-08] MEDS: Multivit/Ca/Min/Fe/FA 1 TAB TABLET PO SCH (10:27)
[2018-10-08] MEDS: Metoprolol XL (24 HR) Succ 50 MG TAB.ER.24H PO SCH (10:27)
== END 2018-10-08 11:15 | DRG 690 ==
LOC: EMEROOPIK 16:58 → INPPIK 16:58
PROVIDERS: ADMIT Internal Medicine; ATTEND Internal Medicine

== ENCOUNTER 2019-03-24 14:47 | Observation (INO) ==
--- NOTE | 2019-03-24 14:58 | Emergency Department Note ---
Disposition Clinical Impression: Hyperammonemia, Respiratory insufficiency Cirrhosis Qualifiers: Hepatic cirrhosis type: unspecified hepatic cirrhosis Ascites presence: with ascites Qualified Code(s): K74.60 - Unspecified cirrhosis of liver Ascites Qualifiers: Ascites type: other type Qualified Code(s): R18.8 - Other ascites Disposition: Admitted As Inpatient Condition: Fair Referrals: Avni Jackson MD [Primary Care Provider] - Forms: ED Satisfaction Letter, Work/School Release Altered Mental Status HPI - General Chief Complaint: ED General Medical Stated Complaint: decreased appetite, increased tremors, Time Seen by Provider: 03/24/19 14:50 Source: patient, EMS, other (Dr. Jackson, [facility] report) Mode of arrival: EMS Limitations: no limitations Nursing Notes Reviewed: Yes Vital Signs Reviewed: Yes - History of Present Illness HPI Narrative: [facility] arrives from [facility] with a varied histories. The [facility] called to report that he had decreased activity and interaction, was not speaking was not ambulatory. They state he was incontinent of urine and he was dusky. They noted that he was on a couple liters by nasal cannula but normally would be on room air. He had had recent lab work which showed some abnormalities over the last 4 months but these were not specified. They also advised that a chest x-ray which showed an elevated left hemidiaphragm. They have called to Dr. Jackson and were advised that he should come here for CT of his chest, abdomen and further workup. When the squad arrived they stated they had a similar initial history but he was sitting, alert and looking about. He was easily conversive and denied anything other than some chronic low back pain. He had tremors which they knew to be chronic and had an Accu-Chek of 131. He was transported without event. On arrival here he states "I feel pretty good now sir". He admits to "I was feeling pretty bad", "I felt out of it" and "I feel okay now". He denies any new pain. He denies headache or abnormality in vision. He does not feel confused. He denies any abnormal neck or back pain. He denies chest pain, cough or shortness of breath. Denies abdominal pain, nausea, vomiting or diarrhea. He denies fevers does admit some chills. Denies any extremity numbness, tingling or weakness but does report some chronic discomfort in the right leg with a known DVT. He denies a recent fall or injury. He states he has been on his normal medicines. He does not know about any ill exposures. His abdomen appears distended and is a little firm but he states this is normal for him. On arrival I have asked him his name, birthdate and which hospital he is in. He is answered all 3 immediately and accurately. MD complaint: altered mental status, confusion, decreased responsiveness, weakness Onset (ago): hour(s) Timing confirmed by: caregiver Pain Severity: none Consistency of Symptoms: waxing and waning (Currently resolved) - Related Data Home Medications Medication Instructions Recorded Confirmed Acetaminophen [Tylenol] 650 mg PO Q6HR PRN 02/20/17 03/24/19 Docusate [Colace] 100 mg PO BID PRN 02/20/17 03/24/19 Fluticasone Propionate Nasal 1 spray NS DAILY 02/20/17 03/24/19 [Flonase] Glimepiride [Amaryl] 2 mg PO BID 02/20/17 03/24/19 Lactulose 45 ml PO DAILY PRN 02/20/17 03/24/19 Loperamide HCl [Imodium A-D] 2 mg PO 8XD PRN 02/20/17 03/24/19 Loratadine [Allergy Relief] 10 mg PO DAILY 02/20/17 03/24/19 Metformin HCl [Glucophage] 1,000 mg PO BID 02/20/17 03/24/19 Metoprolol XL (24 HR) Succ [Toprol 50 mg PO DAILY 02/20/17 10/05/18 Xl] Multivit-Min/Iron Fum/Folic AC 1 tab PO DAILY 02/20/17 03/24/19 [Yhlvb-Rdyjsyn-Jchrsfuc Tablet] Nitroglycerin [Nitrostat] 0.4 mg SL AD PRN 02/20/17 03/24/19 Oxycodone HCl [Oxycodone HCl ER] 15 mg PO Q8H PRN 02/20/17 03/24/19 Pravastatin Sodium [Pravachol] 40 mg PO DAILY 02/20/17 03/24/19 Sennosides [Senna] 8.6 mg PO DAILY 02/20/17 03/24/19 Tizanidine HCl [Zanaflex] 2 mg PO TID PRN 02/20/17 10/05/18 Trihexyphenidyl HCl 2 mg PO BID 02/20/17 10/05/18 Warfarin [Coumadin] 6 mg PO DAILY 02/20/17 10/05/18 Warfarin [Coumadin] 10 mg PO DAILY 02/20/17 10/05/18 carBAMazepine [Tegretol] 200 mg PO BID 02/20/17 10/05/18 hydrOXYzine HCl [Hydroxyzine HCl] 50 mg PO TID PRN 02/20/17 03/24/19 risperiDONE [RisperDAL] 0.5 mg PO BID 02/20/17 03/24/19 risperiDONE [RisperDAL] 0.25 mg PO DAILY 05/08/17 10/05/18 Betamethasone/Propylene Glyc 1 appl TP TID 05/22/17 10/05/18 [Betamethasone Dp Aug 0.05% Lot] Mag Hydrox/Aluminum Hyd/Simeth 15 ml PO Q4H PRN 05/22/17 03/24/19 [Cvs Antacid-Antigas Liquid] Mag Hydrox/Aluminum Hyd/Simeth 15 ml PO Q4H PRN 11/13/17 10/05/18 [Cvs Antacid Plus Anti-Gas Liq] Omeprazole [PriLOSEC] 40 mg PO DAILY 11/13/17 03/24/19 Dicyclomine [Bentyl] 10 mg PO TID 03/24/19 03/24/19 Ferrous Sulfate 325 mg PO BID 03/24/19 03/24/19 GuaiFENesin/Dextromethorphan 5 ml PO Q4HR 03/24/19 03/24/19 [Robitussin/DM] Ketoconazole Shampoo [Nizoral 0 ml TP 3XW 03/24/19 03/24/19 Shampoo] Loteprednol Etabonate [Lotemax] 5 ml OP TID 03/24/19 03/24/19 Rivaroxaban [Xarelto] 20 mg PO DAILY 03/24/19 03/24/19 Sucralfate [Carafate] 1 gm PO BID 03/24/19 03/24/19 Tizanidine HCl [Zanaflex] 4 mg PO TID 03/24/19 03/24/19 Topiramate [Topamax] 50 mg PO BID 03/24/19 03/24/19 Triamcinolone Acet 0.1% OINT 1 appl TP BID 03/24/19 03/24/19 [Kenalog] Previous Rx's Medication Instructions Recorded Ascorbic Acid [C-500] 500 mg PO DAILY 365 Days tablet 10/08/18 Loratadine [Claritin] 10 mg PO DAILY PRN #0 10/08/18 Allergies Allergy/AdvReac Type Severity Reaction Status Date / Time No Known Allergies Allergy Verified 11/13/17 11:00 All systems ED: reviewed and negative except as stated. Past Medical History - Past Medical History Attestation: Yes The following information was validated with the patient. Source: patient, old records reviewed, nursing notes reviewed Medical history: Reports: arthritis, cirrhosis, DVT (On Coumadin), diabetes, GERD (Gastritis), hyperlipidemia, hypertension, seizures, other (Tremors, factor V life deficiency, anemia) Surgical history: Reports: IVC Filter Psychiatric history: Reports: schizophrenia, other (Mild intellectual disability) - Social History Smoking Status: Never smoker Smokeless Tobacco Status: No Alcohol use: Reports: none Drug use: Reports: none Physical Exam - General Limitations: no limitations General appearance: alert, in no apparent distress - Head Head exam: atraumatic, normocephalic, normal inspection - Eye Eye exam: Present: normal appearance, PERRL, EOMI. Absent: scleral icterus, conjunctival injection - ENT ENT exam: normal exam, normal oropharynx, mucous membranes moist - Neck Neck exam: Present: normal inspection, full ROM, trachea midline - Chest Chest inspection: Present: normal inspection, symmetric chest wall rise - Respiratory Respiratory exam: Present: normal lung sounds bilaterally. Absent: respiratory distress, wheezes, prolonged expiratory phase - Cardiovascular Cardiovascular exam: Present: regular rate, normal rhythm, normal heart sounds. Absent: tachycardia - Abdominal Exam Abdominal exam: Present: soft, Non-Tender, distention, hyperactive bowel sounds. Absent: guarding, rebound, rigidity, Verduzco's sign, tenderness at McBurney's Point, pulsatile mass, hernia - Extremities Exam Extremities exam: Present: normal inspection, full ROM, normal capillary refill, calf tenderness (Chronic in the right calf with brawny induration.) - Expanded Lower Extremity Exam Neurovascular/Tendon exam: Present: normal capillary refill Gait: not tested/not observed - Neurological Exam Neurological exam: Present: alert, oriented X3, CN II-XII intact. Absent: motor sensory deficit - Psychiatric Psychiatric exam: Present: normal affect, normal mood - Skin Skin exam: Present: warm, dry, intact, normal color. Absent: cyanosis, diaphoresis, pallor Course Course Narrative: I reviewed the patient's recent record. She did have blood drawn today which showed a white count of 2.7, hemoglobin of 8.1 and platelets of 67. His chemistries were remarkable for a BUN of 10 and hematocrit need 0.67. Remainder of his liver functions were unremarkable. I discussed care with Dr. Jackson who advised he does see a temporary staff accountant for his pancytopenia. Dr. Jackson did have some concerns about the abdominal distention, history of altered mental status and a persistent abnormality at the base of one of the lungs. A report was provided from the [facility] and this breath that a "left perihilar infiltrate cannot be completely excluded". I advised him that we were not told of anything but an elevated left hemidiaphragm. Dr. Jackson requested that we do a CT of his chest and abdomen INR, Tegretol level, urinalysis and ABG. These tests have been ordered and we will follow him clinically. 1615: I discussed the patient's evaluation with Dr. Jackson at 4:03 PM. He recommended observation to make sure he is getting his routine medicines and to start regular lactulose. For this purpose have talked to Dr. Taveras and verbal orders have been obtained for his observation. It is noted that we did receive a faxed updated med list and that he is now on Xarelto instead of Coumadin and he is no longer on Tegretol. Vital Signs Temperature 98.6 F 03/24/19 14:51 Pulse Rate 82 03/24/19 14:51 Respiratory Rate 18 03/24/19 14:51 Blood Pressure 138/68 03/24/19 14:51 O2 Sat by Pulse Oximetry 97 03/24/19 14:51 Temperature 98.6 F 03/24/19 14:51 Pulse Rate 88 03/24/19 16:37 Respiratory Rate 16 03/24/19 16:37 Blood Pressure 122/77 03/24/19 16:37 O2 Sat by Pulse Oximetry 92 03/24/19 16:37 Oxygen Delivery Oxygen Delivery Room Air Altered Mental Status - Differential Diagnosis Likely: altered mental status, hypoglycemia, hyponatremia, psychiatric disease, sepsis - Medical Records Medical records reviewed: Yes I reviewed the patient's medical records. - Lab Data Lab results reviewed: Yes I reviewed the patient's lab results. Lab Results 03/24/19 03/24/19 03/24/19 Range/Units 15:17 15:17 15:17 PT 15.1 H (9.4-12.1) Seconds INR 1.3 Sample Site R Radial ABG pH 7.30 L (7.32-7.45) pH Units ABG pCO2 57 H (35-45) mmHg ABG pO2 85 (85-104) mmHg ABG HCO3 28 H (21-27) mEq/L ABG Total CO2 30 H (20-26) mEq/L ABG O2 Saturation 95 (95-98) % ABG Base Excess 1 (-2 to 3) mEq/L Andrea Test N/A O2 Delivery Device Cannula Inspired O2 3.0 (1-15=lpm [id number]=%) Ammonia (16-53) mcmol/L Urine Color (Yellow) Urine Clarity (Clear) Urine pH (5.0-8.0) pH Units Ur Specific [place] (1.010-1.025) Urine Protein (Neg-Trace) mg/dL Urine Glucose (UA) (Normal) mg/dL Urine Ketones (Negative) mg/dL Urine Blood (Negative) Urine Nitrite (Negative) Urine Bilirubin (Negative) Urine Urobilinogen (Normal) mg/dL Ur Leukocyte Esterase (Negative) Ur Culture Indicated? (NO) Carbamazepine < 1 L (4-12) mcg/mL 03/24/19 03/24/19 Range/Units 15:17 16:15 PT (9.4-12.1) Seconds INR Sample Site ABG pH (7.32-7.45) pH Units ABG pCO2 (35-45) mmHg ABG pO2 (85-104) mmHg ABG HCO3 (21-27) mEq/L ABG Total CO2 (20-26) mEq/L ABG O2 Saturation (95-98) % ABG Base Excess (-2 to 3) mEq/L Andrea Test O2 Delivery Device Inspired O2 (1-15=lpm [id number]=%) Ammonia 121 H (16-53) mcmol/L Urine Color Yellow (Yellow) Urine Clarity Clear (Clear) Urine pH 6.0 (5.0-8.0) pH Units Ur Specific [place] >= 1.030 H (1.010-1.025) Urine Protein Negative (Neg-Trace) mg/dL Urine Glucose (UA) Normal (Normal) mg/dL Urine Ketones Negative (Negative) mg/dL Urine Blood Negative (Negative) Urine Nitrite Negative (Negative) Urine Bilirubin Negative (Negative) Urine Urobilinogen Normal (Normal) mg/dL Ur Leukocyte Esterase Negative (Negative) Ur Culture Indicated? NO (NO) Carbamazepine (4-12) mcg/mL - Radiology Data Radiology results reviewed: Yes I reviewed the patient's radiology results. Impressions Abdomen/Pelvis CT 03/24/19 15:01 IMPRESSION: Diaphragmatic eventration accounts for elevated hemidiaphragms. Resultant basilar atelectasis is present. Cirrhotic liver morphology with features of portal venous hypertension, including splenomegaly, portosystemic collaterals and moderate abdominal ascites. Diffuse gallbladder wall thickening is presumably related to chronic hepatocellular disease. Acute cholecystitis could have a similar appearance in the appropriate context. D/ / Fco York / Fco York Interpreting Provider: Fco York Chest CT 03/24/19 15:01 IMPRESSION: Diaphragmatic eventration accounts for elevated hemidiaphragms. Resultant basilar atelectasis is present. Cirrhotic liver morphology with features of portal venous hypertension, including splenomegaly, portosystemic collaterals and moderate abdominal ascites. Diffuse gallbladder wall thickening is presumably related to chronic hepatocellular disease. Acute cholecystitis could have a similar appearance in the appropriate context. D/ / Fco York / Fco York Interpreting Provider: Fco York TPA Checklist - LKW: 3-4.5 hrs Add. Warnings/Precautions Patient/family understanding: The patient/family members have been counseled and understood the risk, benefit, and alternatives of treatment. Critical Care Time Critical Care Time: Yes Total Critical Care Time: 45 Attestation: As this patient did present with signs and symptoms of potential life- threatening illness requiring my urgent intervention, total critical care time in this patient's care has been 45 minutes, not withstanding separately reportable procedures.
[2019-03-24 15:20] LABS: ABG Base Excess 1 mEq/L (-2 to 3); ABG HCO3 28 mEq/L (21-27); ABG Oxygen Saturation 95 % (95-98); ABG PCO2 57 mmHg (35-45); ABG PO2 85 mmHg (85-104); ABG TCO2 30 mEq/L (20-26)
[2019-03-24 15:29] LABS: INR 1.3; Prothrombin Time 15.1 Seconds (9.4-12.1)
[2019-03-24 16:21] LABS: Bilirubin,Urine Negative (Negative); Blood,Urine Negative (Negative); Clarity,Urine Clear (Clear); Color,Urine Yellow (Yellow); Glucose,Urine (UA) Normal (Normal); Ketones,Urine Negative (Negative); Leukocyte Esterase,Urine Negative (Negative); Nitrite,Urine Negative (Negative); Protein,Urine Negative (Neg-Trace); Specific Gravity,Urine >= 1.030 (1.010-1.025); Urobilinogen,Urine Normal (Normal)
[2019-03-24] MEDS ORDERED: Ondansetron 4 MG/2 ML VIAL IVP PRN (18:06)
[2019-03-24] MEDS ORDERED: Nitroglycerin 0.4 MG TAB.SUBL SL PRN (18:06)
[2019-03-24] MEDS ORDERED: NON-FORMULARY MEDICATION 1 EACH EACH (Oxycodone Hcl [Oxycodone Hcl Er] 15 MG) PO PRN (18:06)
[2019-03-24] MEDS ORDERED: Dextrose Gel 15 GM/37.5 ML TUBE PO PRN ×2 (18:06)
[2019-03-24] MEDS ORDERED: D5% in Water 1,000 ML IVC PRN (18:06)
[2019-03-24] MEDS ORDERED: *HR* Dextrose 50 % in Water (Vial) 50 ML VIAL IVP PRN (18:06)
[2019-03-24] MEDS ORDERED: 0.9 % Sodium Chloride 1,000 ML IVC SCH ×2 (18:06→19:30)
[2019-03-24] MEDS ORDERED: Naloxone 0.4 MG/ML INJ IVP PRN (18:06)
[2019-03-24] MEDS ORDERED: *HR* OxyCODONE Immed Rel 5 MG TABLET PO PRN (19:49)
[2019-03-24] MEDS: Insulin LISPRO 300 UNITS/3 ML VIAL SQ SCH (20:17)
[2019-03-24] MEDS: risperiDONE 0.25 MG TABLET PO SCH (21:23)
[2019-03-24] MEDS: LOTEPREDNOL ETABONATE OP SCH (21:23)
[2019-03-24] MEDS: Topiramate 25 MG TABLET PO SCH (21:23)
[2019-03-24] MEDS: Sucralfate 1 GM TABLET PO SCH (21:23)
[2019-03-24] MEDS: tiZANidine 4 MG TABLET PO SCH (21:23)
[2019-03-24] MEDS: *HR* Metformin 500 MG TABLET PO SCH (21:27)
[2019-03-24] MEDS: Lactulose Oral Soln 20 GM/30 ML UDC PO SCH (21:27)
[2019-03-25 05:24] LABS: Basophils % 0.8 %; Eosinophils # 0.2 K/mcL (0.0-0.6); Eosinophils % 7.2 %; Hematocrit 27.4 % (37.5-50.1); Immature Granulocytes % 0.4 % (0-4); Lymphocytes # 0.5 K/mcL (0.6-4.6); Lymphocytes % 21.6 %; Mean Corpuscular HGB Conc 29.2 g/dL (31.6-35.5); Mean Corpuscular Hemoglobin 30.3 pg (28.0-33.3); Mean Corpuscular Volume 103.8 fL (83.0-100.0); Mean Platelet Volume 10.9 fL (9.4-12.4); Monocytes # 0.3 K/mcL (0.0-1.3); Neutrophils # 1.4 K/mcL (1.6-8.9); Red Blood Count 2.64 M/mcL (4.19-5.50); Red Cell Distribution Width 13.6 % (11.5-14.5)
[2019-03-25 05:44] LABS: Phosphorous 3.6 mg/dL (2.7-4.5)
[2019-03-25 05:46] LABS: Platelet Count 65 K/mcL (140-400)
[2019-03-25 06:27] LABS: Platelet Estimate Decreased (Normal)
[2019-03-25] MEDS: *HR* Metformin 500 MG TABLET PO SCH ×2 (07:58→16:11)
[2019-03-25] MEDS: Sucralfate 1 GM TABLET PO SCH ×2 (07:58→21:08)
[2019-03-25] MEDS: tiZANidine 4 MG TABLET PO SCH ×3 (07:58→21:08)
[2019-03-25] MEDS: risperiDONE 0.25 MG TABLET PO SCH ×2 (07:58→21:08)
[2019-03-25] MEDS: Lactulose Oral Soln 20 GM/30 ML UDC PO SCH (07:59)
[2019-03-25] MEDS: Topiramate 25 MG TABLET PO SCH ×2 (07:59→21:08)
[2019-03-25] MEDS: Insulin LISPRO 300 UNITS/3 ML VIAL SQ SCH ×3 (07:59→16:12)
[2019-03-25] MEDS: *HR* Rivaroxaban 10 MG TABLET PO SCH (07:59)
[2019-03-25] MEDS ORDERED: *HR* Glimepiride 2 MG TABLET PO SCH (08:00)
[2019-03-25] MEDS: Fluticasone Propionate Nasal 50 MCG/SPRAY BOTTLE NS SCH (08:08)
[2019-03-25] MEDS: LOTEPREDNOL ETABONATE OP SCH ×3 (08:11→21:12)
[2019-03-25 09:42] LABS: Folate 9.7 ng/mL (3.0-16.0)
--- NOTE | 2019-03-25 10:26 | Internal Med History&Physical ---
Date of Encounter: 03/25/19 Time of Encounter: 10:05 Assessment and Plan (1) Hepatic encephalopathy Current visit: Yes Status: Acute He will be started on rifaximin and scheduled lactulose. (2) History of DVT (deep vein thrombosis) Current visit: Yes Status: Acute Chart reports history of IVC filter placement and factor V Leiden deficiency. He was started on Xarelto in emergency room and Coumadin has been discontinued. (3) DM type 2 (diabetes mellitus, type 2) Current visit: No Status: Chronic Hemoglobin A1c 5.0% on 02/05/2019. Hold Amaryl to avoid hypoglycemia. 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 Continue treatment for HE as per above. Qualifiers: Hepatic cirrhosis type: unspecified hepatic cirrhosis Ascites presence: with ascites Qualified Code(s): K74.60 - Unspecified cirrhosis of liver; R18.8 - Other ascites (5) Pancytopenia Current visit: Yes Status: Acute Likely secondary to cirrhosis. Anemia testing showed iron 98, transferrin saturation 22%, transferrin 314, ferritin 9, B12 496, and folate 9.7. Continue oral ferrous sulfate with ascorbic acid. Internal Medicine - H&P: HPI Chief complaint: Lethargy, confusion Admitted From: Emergency Dept Plans for Post Hospital Care: Home History of present illness: Mr. Rojo is a 54 year old male who was sent to emergency room after staff at the SN[facility] noted him to have altered mental status and decreased ambulation ability. He was evaluated emergency room was found to have pneumonia level CXXI. He was admitted to [facility] floor for ongoing care needs. He states he has had occasional "stabbing" abdominal pain without vomiting or diarrhea at the [place] [facility]. He has been diagnosed with cirrhosis but does not know if etiology has been determined. He denies disorders of gallbladder or exocrine pancreas. Past Med Surg Social Fam HX - Past Medical History Medical history: arthritis, cirrhosis, DVT, diabetes, GERD, hyperlipidemia, hypertension, seizures, other Additional medical history: factor V. tremors. anemia. DVT Psychiatric history: schizophrenia, other - Past Surgical History Surgical History: IVC Filter Additional surgical history: perlita filter - Social History Smoking Status: Never smoker Smokeless Tobacco Status: No Alcohol use: none Drug use: none Internal Medicine - H&P: Meds Acetaminophen [Tylenol] 650 mg PO Q6HR PRN 02/20/17 [History] Docusate [Colace] 100 mg PO BID PRN 02/20/17 [History] Fluticasone Propionate Nasal [Flonase] 1 spray NS DAILY 02/20/17 [History] Glimepiride [Amaryl] 2 mg PO BID 02/20/17 [History] Lactulose 45 ml PO DAILY PRN 02/20/17 [History] Loperamide HCl [Imodium A-D] 2 mg PO 8XD PRN 02/20/17 [History] Loratadine [Allergy Relief] 10 mg PO DAILY 02/20/17 [History] Metformin HCl [Glucophage] 1,000 mg PO BID 02/20/17 [History] Metoprolol XL (24 HR) Succ [Toprol Xl] 50 mg PO DAILY 02/20/17 [History] Multivit-Min/Iron Fum/Folic AC [Ixxgz-Aqckdba-Xenxnijb Tablet] 1 tab PO DAILY 0 02/20/17 [History] Nitroglycerin [Nitrostat] 0.4 mg SL AD PRN 02/20/17 [History] Oxycodone HCl [Oxycodone HCl ER] 15 mg PO Q8H PRN 02/20/17 [History] Pravastatin Sodium [Pravachol] 40 mg PO DAILY 02/20/17 [History] Sennosides [Senna] 8.6 mg PO DAILY 02/20/17 [History] Tizanidine HCl [Zanaflex] 2 mg PO TID PRN 02/20/17 [History] Trihexyphenidyl HCl 2 mg PO BID 02/20/17 [History] Warfarin [Coumadin] 6 mg PO DAILY 02/20/17 [History] Warfarin [Coumadin] 10 mg PO DAILY 02/20/17 [History] carBAMazepine [Tegretol] 200 mg PO BID 02/20/17 [History] hydrOXYzine HCl [Hydroxyzine HCl] 50 mg PO TID PRN 02/20/17 [History] risperiDONE [RisperDAL] 0.5 mg PO BID 02/20/17 [History] risperiDONE [RisperDAL] 0.25 mg PO DAILY 05/08/17 [History] Betamethasone/Propylene Glyc [Betamethasone Dp Aug 0.05% Lot] 1 appl TP TID 05/22/17 [History] Mag Hydrox/Aluminum Hyd/Simeth [Cvs Antacid-Antigas Liquid] 15 ml PO Q4H PRN 05/22/17 [History] Mag Hydrox/Aluminum Hyd/Simeth [Cvs Antacid Plus Anti-Gas Liq] 15 ml PO Q4H PRN 11/13/17 [History] Omeprazole [PriLOSEC] 40 mg PO DAILY 11/13/17 [History] Ascorbic Acid [C-500] 500 mg PO DAILY 365 Days tablet 10/08/18 [Rx] Loratadine [Claritin] 10 mg PO DAILY PRN #0 10/08/18 [Rx] Dicyclomine [Bentyl] 10 mg PO TID 03/24/19 [History] Ferrous Sulfate 325 mg PO BID 03/24/19 [History] GuaiFENesin/Dextromethorphan [Robitussin/DM] 5 ml PO Q4HR 03/24/19 [History] Ketoconazole Shampoo [Nizoral Shampoo] 0 ml TP 3XW 03/24/19 [History] Loteprednol Etabonate [Lotemax] 5 ml OP TID 03/24/19 [History] Rivaroxaban [Xarelto] 20 mg PO DAILY 03/24/19 [History] Sucralfate [Carafate] 1 gm PO BID 03/24/19 [History] Tizanidine HCl [Zanaflex] 4 mg PO TID 03/24/19 [History] Topiramate [Topamax] 50 mg PO BID 03/24/19 [History] Triamcinolone Acet 0.1% OINT [Kenalog] 1 appl TP BID 03/24/19 [History] Allergy/AdvReac Type Severity Reaction Status Date / Time No Known Allergies Allergy Verified 11/13/17 11:00 All Systems PM: A 10-system review of systems was performed and is negative for pertinent findings except as documented above in the HPI. Review of systems: Review of systems from his September 2018 [facility] hospitalization were reviewed and revised as below. Gen.: His weight has increased from 117.39 kg on 10/07/2018 to 122.243 kg on admission now Cardiovascular: He has history of hypertension. He has history of DVT but does not recall details. He denies IA heart failure angina or pulmonary embolus Respiratory: He states he is a lifelong nonsmoker and denies chronic lung disease GI: As per history of present illness : He denies hematuria dysuria or kidney stones Neurologic: He is uncertain if he has history of seizures. He denies large distribution strokes. Endocrine: He has history of DM 2 and hyperlipidemia. He denies thyroid disease. Hematology/oncology: He has chronic anemia and thrombocytopenia. He denies known malignancy. Psychiatric: He has history of psychosis but he cannot give details. [place] skeletal: He states he has arthritis but denies gout or other bone joint or muscle disorders. - Constitutional Vitals: Temp Pulse Resp BP Pulse Ox 98.4 F 80 18 124/67 99 03/25/19 06:57 03/25/19 06:57 03/25/19 06:57 03/25/19 06:57 03/25/19 06:57 Exam: Gen.: He is a well-developed overweight male lying in bed who appears in no acute distress at present time. He denies pain or dyspnea. HEENT: Head is atraumatic and normocephalic. Eyes: EOMI. There is no scleral icterus. Mouth: Mucosa is moist. Neck: Supple and nontender. There is no thyromegaly or adenopathy noted. Heart: Regular without murmurs gallops or ectopics Lungs: No wheezes or crackles are heard. Abdomen: He has a ~2 cm umbilical hernia that is slightly discolored but nontender to palpation. He has ascites present on percussion of the abdomen. There is no tenderness to palpation. Extremities: The right lower leg shows significant chronic venous stasis pigmentation changes. The left leg shows no pigmentation. There is 2+ edema of the dorsum of the feet and lower legs bilaterally. Dorsalis pedis and posterior tibial pulses are not palpable. Neurologic: Mental status: He is talkative and a fair historian. He does not remember some details of his history. Cranial nerves: Smile is symmetric. Forehead wrinkles bilaterally. Tongue protrudes midline. EOMI. Motor: There is no pronator drift. Cerebellar: Finger to nose is intact bilaterally. Skin: Warm and dry Internal Med - H&P Results - Labs CBC & Chem 7: 03/25/19 04:23 Labs: Short CBC 03/25/19 Range/Units 04:23 WBC 2.4 L (4.3-11.1) K/mcL Hgb 8.0 L (12.9-16.9) g/dL Hct 27.4 L (37.5-50.1) % Plt Count 65 L (140-400) K/mcL Neutrophils # 1.4 L (1.6-8.9) K/mcL Urine 03/24/19 Range/Units 16:15 Urine Color Yellow (Yellow) Urine Clarity Clear (Clear) Urine pH 6.0 (5.0-8.0) pH Units Ur Specific [place] >= 1.030 H (1.010-1.025) Urine Protein Negative (Neg-Trace) mg/dL Urine Glucose (UA) Normal (Normal) mg/dL - ABG Interpretation ABG results: 03/24/19 15:17 ABG pH 7.30 L ABG pCO2 57 H ABG pO2 85 ABG HCO3 28 H ABG Total CO2 30 H ABG O2 Saturation 95 ABG Base Excess 1 - Impressions ITS Impressions Abdomen/Pelvis CT 03/24/19 15:01 IMPRESSION: Diaphragmatic eventration accounts for elevated hemidiaphragms. Resultant basilar atelectasis is present. Cirrhotic liver morphology with features of portal venous hypertension, including splenomegaly, portosystemic collaterals and moderate abdominal ascites. Diffuse gallbladder wall thickening is presumably related to chronic hepatocellular disease. Acute cholecystitis could have a similar appearance in the appropriate context. D/ /24/2019 16:05:24 Fco man Interpreting Provider: Fco York Chest CT 03/24/19 15:01 IMPRESSION: Diaphragmatic eventration accounts for elevated hemidiaphragms. Resultant basilar atelectasis is present. Cirrhotic liver morphology with features of portal venous hypertension, including splenomegaly, portosystemic collaterals and moderate abdominal ascites. Diffuse gallbladder wall thickening is presumably related to chronic hepatocellular disease. Acute cholecystitis could have a similar appearance in the appropriate context. D/ /24/2019 16:05:24 Fco York / magda Interpreting Provider: Fco York
[2019-03-25] MEDS: Bumetanide 1 MG TABLET PO SCH (16:11)
[2019-03-26 06:27] LABS: Platelet Estimate Decreased (Normal)
[2019-03-26 07:04] VITALS: BP 129/77
[2019-03-26] MEDS: Insulin LISPRO 300 UNITS/3 ML VIAL SQ SCH (07:22)
[2019-03-26] MEDS: Topiramate 25 MG TABLET PO SCH (07:46)
[2019-03-26] MEDS: Lactulose Oral Soln 20 GM/30 ML UDC PO SCH (07:47)
[2019-03-26] MEDS: Sucralfate 1 GM TABLET PO SCH (07:47)
[2019-03-26] MEDS: *HR* Rivaroxaban 10 MG TABLET PO SCH (07:47)
[2019-03-26] MEDS: risperiDONE 0.25 MG TABLET PO SCH (07:47)
[2019-03-26] MEDS: *HR* Metformin 500 MG TABLET PO SCH (07:47)
[2019-03-26] MEDS: Bumetanide 1 MG TABLET PO SCH (07:47)
[2019-03-26] MEDS: tiZANidine 4 MG TABLET PO SCH (07:47)
[2019-03-26] MEDS: Fluticasone Propionate Nasal 50 MCG/SPRAY BOTTLE NS SCH (07:48)
[2019-03-26] MEDS: LOTEPREDNOL ETABONATE OP SCH (07:48)
[2019-03-26 08:58] LABS: Eosinophils # 0.1 K/mcL (0.0-0.6); Hematocrit 27.5 % (37.5-50.1); Hemoglobin 8.3 g/dL (12.9-16.9); Lymphocytes # 0.3 K/mcL (0.6-4.6); Mean Corpuscular HGB Conc 30.2 g/dL (31.6-35.5); Mean Corpuscular Hemoglobin 30.9 pg (28.0-33.3); Mean Corpuscular Volume 102.2 fL (83.0-100.0); Monocytes # 0.1 K/mcL (0.0-1.3); Neutrophils # 1.7 K/mcL (1.6-8.9); Platelet Count 55 K/mcL (140-400); Red Blood Count 2.69 M/mcL (4.19-5.50); Red Cell Distribution Width 13.3 % (11.5-14.5)
[2019-03-26 08:59] LABS: Mean Platelet Volume 10.7 fL (9.4-12.4)
--- NOTE | 2019-03-26 10:14 | Discharge Summary ---
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 Rojo is a 54 year old male who was sent to emergency room after staff at the [facility] noted him to have altered mental status and decreased ambulation ability. He was evaluated emergency room was found to have pneumonia level CXXI. He was admitted to [facility] floor for ongoing care needs. Initial orders written by the emergency room physician. I saw him on March 25 and performed a history and physical. He was started on rifaximin and scheduled lactulose. He had good clinical response with ammonia level decreasing to 52 by day of discharge. His mental status returned to baseline. He will continue scheduled lactulose and rifaximin at discharge. Chest, abdomen, and pelvis CT showed cirrhotic liver morphology with features of portal venous hypertension. He was started on Xarelto for history of DVT. Coumadin was discontinued. Amaryl was discontinued to avoid hypoglycemia. Blood sugars remained stable off this medication. Anemia testing showed iron 98, transferrin saturation 22%, transferrin 314, ferritin 9, B12 496, and folate 9.7. He will continue oral ferrous sulfate with ascorbic acid. On March 26 he was stable for discharge back to [place] [facility] [place] where he will follow with Dr. Jackson. - Time Spent with Patient Total time spent providing and/or coordinating discharge services: - Discharge Medications Prescriptions: New Bumetanide [Bumex] 1 mg PO DAILY tablet Lactulose 30 gm PO DAILY udc Potassium Chloride 10 meq PO DAILY 365 Days tab.er.prt Rivaroxaban [Xarelto] 20 mg PO DAILY tablet Rifaximin [Xifaxan] 550 mg PO BID tablet Continued Tizanidine HCl [Zanaflex] 2 mg PO TID PRN PRN Reason: Muscle Spasm Acetaminophen [Tylenol] 650 mg PO Q6HR PRN PRN Reason: Pain Docusate [Colace] 100 mg PO BID PRN PRN Reason: Constipation risperiDONE [RisperDAL] 0.5 mg PO BID Metoprolol XL (24 HR) Succ [Toprol Xl] 50 mg PO DAILY Trihexyphenidyl HCl 2 mg PO BID Sennosides [Senna] 8.6 mg PO DAILY Pravastatin Sodium [Pravachol] 40 mg PO DAILY Oxycodone HCl [Oxycodone HCl ER] 15 mg PO Q8H PRN PRN Reason: Pain Nitroglycerin [Nitrostat] 0.4 mg SL AD PRN PRN Reason: Chest Pain Multivit-Min/Iron Fum/Folic AC [Cbpnb-Ewfracw-Gsnprycv Tablet] 1 tab PO DAILY Metformin HCl [Glucophage] 1,000 mg PO BID Loratadine [Allergy Relief] 10 mg PO DAILY Loperamide HCl [Imodium A-D] 2 mg PO 8XD PRN PRN Reason: Diarrhea Lactulose 45 ml PO DAILY PRN PRN Reason: Constipation hydrOXYzine HCl [Hydroxyzine HCl] 50 mg PO TID PRN PRN Reason: Itching Fluticasone Propionate Nasal [Flonase] 1 spray NS DAILY carBAMazepine [Tegretol] 200 mg PO BID risperiDONE [RisperDAL] 0.25 mg PO DAILY Betamethasone/Propylene Glyc [Betamethasone Dp Aug 0.05% Lot] 1 appl TP TID Mag Hydrox/Aluminum Hyd/Simeth [Cvs Antacid-Antigas Liquid] 15 ml PO Q4H PRN PRN Reason: Heartburn Omeprazole [PriLOSEC] 40 mg PO DAILY Mag Hydrox/Aluminum Hyd/Simeth [Cvs Antacid Plus Anti-Gas Liq] 15 ml PO Q4H PRN PRN Reason: Heartburn Loratadine [Claritin] 10 mg PO DAILY PRN #0 PRN Reason: Allergy Symptoms Ascorbic Acid [C-500] 500 mg PO DAILY 365 Days tablet Ferrous Sulfate 325 mg PO BID Tizanidine HCl [Zanaflex] 4 mg PO TID Rivaroxaban [Xarelto] 20 mg PO DAILY Triamcinolone Acet 0.1% OINT [Kenalog] 1 appl TP BID Topiramate [Topamax] 50 mg PO BID Sucralfate [Carafate] 1 gm PO BID GuaiFENesin/Dextromethorphan [Robitussin/Dm] 5 ml PO Q4HR Loteprednol Etabonate [Lotemax] 5 ml OP TID Dicyclomine [Bentyl] 10 mg PO TID Ketoconazole Shampoo [Nizoral Shampoo] 0 ml TP 3XW Discontinued Warfarin [Coumadin] 6 mg PO DAILY Glimepiride [Amaryl] 2 mg PO BID Warfarin [Coumadin] 10 mg PO DAILY Home Medications: Acetaminophen [Tylenol] 650 mg PO Q6HR PRN 02/20/17 [History] Docusate [Colace] 100 mg PO BID PRN 02/20/17 [History] Fluticasone Propionate Nasal [Flonase] 1 spray NS DAILY 02/20/17 [History] Lactulose 45 ml PO DAILY PRN 02/20/17 [History] Loperamide HCl [Imodium A-D] 2 mg PO 8XD PRN 02/20/17 [History] Loratadine [Allergy Relief] 10 mg PO DAILY 02/20/17 [History] Metformin HCl [Glucophage] 1,000 mg PO BID 02/20/17 [History] Metoprolol XL (24 HR) Succ [Toprol Xl] 50 mg PO DAILY 02/20/17 [History] Multivit-Min/Iron Fum/Folic AC [Jmqmn-Lwlsekp-Izcibdvd Tablet] 1 tab PO DAILY 02/20/17 [History] Nitroglycerin [Nitrostat] 0.4 mg SL AD PRN 02/20/17 [History] Oxycodone HCl [Oxycodone HCl ER] 15 mg PO Q8H PRN 02/20/17 [History] Pravastatin Sodium [Pravachol] 40 mg PO DAILY 02/20/17 [History] Sennosides [Senna] 8.6 mg PO DAILY 02/20/17 [History] Tizanidine HCl [Zanaflex] 2 mg PO TID PRN 02/20/17 [History] Trihexyphenidyl HCl 2 mg PO BID 02/20/17 [History] carBAMazepine [Tegretol] 200 mg PO BID 02/20/17 [History] hydrOXYzine HCl [Hydroxyzine HCl] 50 mg PO TID PRN 02/20/17 [History] risperiDONE [RisperDAL] 0.5 mg PO BID 02/20/17 [History] risperiDONE [RisperDAL] 0.25 mg PO DAILY 05/08/17 [History] Betamethasone/Propylene Glyc [Betamethasone Dp Aug 0.05% Lot] 1 appl TP TID 05/22/17 [History] Mag Hydrox/Aluminum Hyd/Simeth [Cvs Antacid-Antigas Liquid] 15 ml PO Q4H PRN 05/22/17 [History] Mag Hydrox/Aluminum Hyd/Simeth [Cvs Antacid Plus Anti-Gas Liq] 15 ml PO Q4H PRN 11/13/17 [History] Omeprazole [PriLOSEC] 40 mg PO DAILY 11/13/17 [History] Ascorbic Acid [C-500] 500 mg PO DAILY 365 Days tablet 10/08/18 [Rx] Loratadine [Claritin] 10 mg PO DAILY PRN #0 10/08/18 [Rx] Dicyclomine [Bentyl] 10 mg PO TID 03/24/19 [History] Ferrous Sulfate 325 mg PO BID 03/24/19 [History] GuaiFENesin/Dextromethorphan [Robitussin/Dm] 5 ml PO Q4HR 03/24/19 [History] Ketoconazole Shampoo [Nizoral Shampoo] 0 ml TP 3XW 03/24/19 [History] Loteprednol Etabonate [Lotemax] 5 ml OP TID 03/24/19 [History] Rivaroxaban [Xarelto] 20 mg PO DAILY 03/24/19 [History] Sucralfate [Carafate] 1 gm PO BID 03/24/19 [History] Tizanidine HCl [Zanaflex] 4 mg PO TID 03/24/19 [History] Topiramate [Topamax] 50 mg PO BID 03/24/19 [History] Triamcinolone Acet 0.1% OINT [Kenalog] 1 appl TP BID 03/24/19 [History] Bumetanide [Bumex] 1 mg PO DAILY tablet 03/26/19 [Rx] Lactulose 30 gm PO DAILY udc 03/26/19 [Rx] Potassium Chloride 10 meq PO DAILY 365 Days tab.er.prt 03/26/19 [Rx] Rifaximin [Xifaxan] 550 mg PO BID tablet 03/26/19 [Rx] Rivaroxaban [Xarelto] 20 mg PO DAILY tablet 03/26/19 [Rx] Allergies/Adverse Reactions: Allergy/AdvReac Type Severity Reaction Status Date / Time No Known Allergies Allergy Verified 11/13/17 11:00 Date of admission: 03/24/19 17:58 Primary care physician: Avni Jackson MD Consults: 03/24/19 18:51 Consult to Informatics Application Analyst [CONS] Routine Reason for SW Consult: patient from [facility] - Constitutional Vitals: Temp Pulse Resp BP Pulse Ox 98.3 F 92 18 129/77 96 03/26/19 07:03 03/26/19 07:03 03/26/19 07:03 03/26/19 07:03 03/26/19 07:58 - Patient Status Disposition: Transfer SNF Condition: Fair - Discharge Instructions Follow Up With: Avni Jackson MD [Primary Care Provider] - 1 week - Diet and Activity Activity: resume usual activities as tolerated Diet: advance to your usual diet
--- NOTE | 2019-03-26 10:20 | Physician Discharge Referral ---
ExtendedCare Referral Info Transfer To: [facility] Provider in Charge: Nitin Provider in Charge after Transfer: PCP (Manuel) - Diagnosis (1) Hepatic encephalopathy Priority: Primary Status: Acute (2) History of DVT (deep vein thrombosis) Priority: Secondary Status: Acute (3) DM type 2 (diabetes mellitus, type 2) Priority: Secondary Status: Chronic (4) Cirrhosis Priority: Secondary Status: Acute (5) Pancytopenia Priority: Secondary Status: Acute Prognosis: Good Aware of Diagnosis: Patient Aware of Prognosis: Patient - Transfer Medications Prescriptions: Potassium Chloride 10 meq PO DAILY 365 Days tab.er.prt Home Medications: Acetaminophen [Tylenol] 650 mg PO Q6HR PRN 02/20/17 [History] Docusate [Colace] 100 mg PO BID PRN 02/20/17 [History] Fluticasone Propionate Nasal [Flonase] 1 spray NS DAILY 02/20/17 [History] Lactulose 45 ml PO DAILY PRN 02/20/17 [History] Loperamide HCl [Imodium A-D] 2 mg PO 8XD PRN 02/20/17 [History] Loratadine [Allergy Relief] 10 mg PO DAILY 02/20/17 [History] Metformin HCl [Glucophage] 1,000 mg PO BID 02/20/17 [History] Metoprolol XL (24 HR) Succ [Toprol Xl] 50 mg PO DAILY 02/20/17 [History] Multivit-Min/Iron Fum/Folic AC [Mpgse-Gzyreyn-Kagmbtkh Tablet] 1 tab PO DAILY 02/20/17 [History] Nitroglycerin [Nitrostat] 0.4 mg SL AD PRN 02/20/17 [History] Oxycodone HCl [Oxycodone HCl ER] 15 mg PO Q8H PRN 02/20/17 [History] Pravastatin Sodium [Pravachol] 40 mg PO DAILY 02/20/17 [History] Sennosides [Senna] 8.6 mg PO DAILY 02/20/17 [History] Tizanidine HCl [Zanaflex] 2 mg PO TID PRN 02/20/17 [History] Trihexyphenidyl HCl 2 mg PO BID 02/20/17 [History] carBAMazepine [Tegretol] 200 mg PO BID 02/20/17 [History] hydrOXYzine HCl [Hydroxyzine HCl] 50 mg PO TID PRN 02/20/17 [History] risperiDONE [RisperDAL] 0.5 mg PO BID 02/20/17 [History] risperiDONE [RisperDAL] 0.25 mg PO DAILY 05/08/17 [History] Betamethasone/Propylene Glyc [Betamethasone Dp Aug 0.05% Lot] 1 appl TP TID 05/22/17 [History] Mag Hydrox/Aluminum Hyd/Simeth [Cvs Antacid-Antigas Liquid] 15 ml PO Q4H PRN 05/22/17 [History] Mag Hydrox/Aluminum Hyd/Simeth [Cvs Antacid Plus Anti-Gas Liq] 15 ml PO Q4H PRN 11/13/17 [History] Omeprazole [PriLOSEC] 40 mg PO DAILY 11/13/17 [History] Ascorbic Acid [C-500] 500 mg PO DAILY 365 Days tablet 10/08/18 [Rx] Loratadine [Claritin] 10 mg PO DAILY PRN #0 10/08/18 [Rx] Dicyclomine [Bentyl] 10 mg PO TID 03/24/19 [History] Ferrous Sulfate 325 mg PO BID 03/24/19 [History] GuaiFENesin/Dextromethorphan [Robitussin/Dm] 5 ml PO Q4HR 03/24/19 [History] Ketoconazole Shampoo [Nizoral Shampoo] 0 ml TP 3XW 03/24/19 [History] Loteprednol Etabonate [Lotemax] 5 ml OP TID 03/24/19 [History] Rivaroxaban [Xarelto] 20 mg PO DAILY 03/24/19 [History] Sucralfate [Carafate] 1 gm PO BID 03/24/19 [History] Tizanidine HCl [Zanaflex] 4 mg PO TID 03/24/19 [History] Topiramate [Topamax] 50 mg PO BID 03/24/19 [History] Triamcinolone Acet 0.1% OINT [Kenalog] 1 appl TP BID 03/24/19 [History] Bumetanide [Bumex] 1 mg PO DAILY tablet 03/26/19 [Rx] Lactulose 30 gm PO DAILY udc 03/26/19 [Rx] Potassium Chloride 10 meq PO DAILY 365 Days tab.er.prt 03/26/19 [Rx] Rifaximin [Xifaxan] 550 mg PO BID tablet 03/26/19 [Rx] Rivaroxaban [Xarelto] 20 mg PO DAILY tablet 03/26/19 [Rx] Allergies/Adverse Reactions: Allergy/AdvReac Type Severity Reaction Status Date / Time No Known Allergies Allergy Verified 11/13/17 11:00 - Respiratory Orders Smoking Cessation: Smoking cessation has been advised. For more information, call the [place] Tobacco Quit Line at 4-458-DHAP-NOW. - Lab Orders Lab Orders: Other (include drug levels w/frequency) (CBC with differential, BMP, BN peptide, magnesium, ammonia level in one week) - Mobility Orders Ambulate - Rehabiliation Orders Rehab Potential: Good Rehab Orders: Evaluation for Physical Therapy, Evaluation for Occupational Therapy - Diet Orders No Concentrated Sweets CERTIFICATION: I certify that the transfer of the above named patient to an Extended Care Facility is necessary for the continuing treatment of the diagnosis listed. The above information is true and accurate reflection of patient's current condition. Confidential - Redisclosure prohibited without a patient's written consent.
== END 2019-03-26 11:15 ==
LOC: INPPIK 14:47 → EMEROOPIK 14:47 → INPPIK 18:17
PROVIDERS: ADMIT Internal Medicine; ATTEND Internal Medicine

== ENCOUNTER 2019-04-15 18:30 | Inpatient (IN) ==
--- NOTE | 2019-04-15 18:38 | Emergency Department Note ---
Disposition Clinical Impression: Anemia, Cirrhosis, Ascites Disposition: Admitted As Inpatient Condition: Fair Time of Disposition: 20:32 General Adult HPI - General Chief complaint: ED Abdominal Pain Stated complaint: Abdominal pain, low hgb Time Seen by Provider: 04/15/19 18:30 Source: patient Mode of arrival: EMS Limitations: no limitations Nursing Notes Reviewed: Yes Vital Signs Reviewed: Yes - History of Present Illness HPI Narrative: Patient complains of some abdominal pain is started on the way [place] the hill here to the hospital. He was transferred here because a low hemoglobin reportedly. We did not receive a lot of information from the facility where he resides. Onset (ago): unknown Location: abdomen Radiation: non-radiation Pain Severity: mild Consistency: intermittent Improves with: nothing Worsens with: nothing Associated symptoms: Reports: denies other symptoms - Related Data Home Medications Medication Instructions Recorded Confirmed Docusate [Colace] 100 mg PO BID PRN 02/20/17 04/15/19 Fluticasone Propionate Nasal 1 spray NS DAILY 02/20/17 04/15/19 [Flonase] Lactulose 45 ml PO DAILY PRN 02/20/17 04/15/19 Metformin HCl [Glucophage] 1,000 mg PO BID 02/20/17 04/15/19 Metoprolol XL (24 HR) Succ [Toprol 50 mg PO DAILY 02/20/17 04/15/19 Xl] Multivit-Min/Iron Fum/Folic AC 1 tab PO DAILY 02/20/17 04/15/19 [Hmppp-Tvueccq-Gjeuxpfy Tablet] Nitroglycerin [Nitrostat] 0.4 mg SL AD PRN 02/20/17 04/15/19 Oxycodone HCl [Oxycodone HCl ER] 15 mg PO Q8H PRN 02/20/17 04/15/19 Pravastatin Sodium [Pravachol] 40 mg PO DAILY 02/20/17 04/15/19 Sennosides [Senna] 8.6 mg PO DAILY 02/20/17 04/15/19 Tizanidine HCl [Zanaflex] 2 mg PO TID PRN 02/20/17 04/15/19 Trihexyphenidyl HCl 2 mg PO BID 02/20/17 04/15/19 hydrOXYzine HCl [Hydroxyzine HCl] 50 mg PO TID PRN 02/20/17 04/15/19 risperiDONE [RisperDAL] 1 mg PO BID 02/20/17 04/15/19 Betamethasone/Propylene Glyc 1 appl TP TID 05/22/17 04/15/19 [Betamethasone Dp Aug 0.05% Lot] Mag Hydrox/Aluminum Hyd/Simeth 15 ml PO Q4H PRN 05/22/17 03/24/19 [Cvs Antacid-Antigas Liquid] Mag Hydrox/Aluminum Hyd/Simeth 15 ml PO Q4H PRN 11/13/17 04/15/19 [Cvs Antacid Plus Anti-Gas Liq] Omeprazole [PriLOSEC] 40 mg PO DAILY 11/13/17 04/15/19 Dicyclomine [Bentyl] 10 mg PO TID 03/24/19 04/15/19 Ferrous Sulfate 325 mg PO BID 03/24/19 04/15/19 GuaiFENesin/Dextromethorphan 5 ml PO Q4HR 03/24/19 03/24/19 [Robitussin/Dm] Ketoconazole Shampoo [Nizoral 0 ml TP 3XW 03/24/19 04/15/19 Shampoo] Sucralfate [Carafate] 1 gm PO BID 03/24/19 04/15/19 Tizanidine HCl [Zanaflex] 4 mg PO TID 03/24/19 04/15/19 Topiramate [Topamax] 50 mg PO BID 03/24/19 04/15/19 Triamcinolone Acet 0.1% OINT 1 appl TP BID 03/24/19 04/15/19 [Kenalog] Previous Rx's Medication Instructions Recorded Ascorbic Acid [C-500] 500 mg PO DAILY 365 Days tablet 10/08/18 Bumetanide [Bumex] 1 mg PO DAILY tablet 03/26/19 Potassium Chloride 10 meq PO DAILY 365 Days 03/26/19 tab.er.prt Rifaximin [Xifaxan] 550 mg PO BID tablet 03/26/19 Rivaroxaban [Xarelto] 20 mg PO DAILY tablet 03/26/19 Allergies Allergy/AdvReac Type Severity Reaction Status Date / Time No Known Allergies Allergy Verified 04/15/19 20:28 All systems ED: reviewed and negative except as stated. Review of Systems: As Per HPI Constitutional: Denies: fever, chills, weakness, weight change Eyes: Denies: eye pain, eye discharge, vision change ENT ED: Denies: ear pain, throat pain, dental pain, hearing loss, epistaxis, congestion, dysphagia Cardiovascular: Denies: chest pain, palpitations, dyspnea on exertion, edema, syncope Respiratory: Denies: cough, dyspnea, wheezes, hemoptysis, stridor Gastrointestinal: Reports: as per HPI, abdominal pain. Denies: nausea, vomiting, diarrhea Genitourinary: Denies: urgency, dysuria, frequency, hematuria Musculoskeletal: Denies: back pain, neck pain, arthralgia, myalgia Integumentary: Reports: as per HPI Neurological: Denies: headache, weakness, numbness, paresthesias, confusion, abnormal gait, vertigo Psychiatric: Denies: anxiety, depression, suicidal thoughts, homicidal thoughts, auditory hallucinations, visual hallucinations Endocrine: Denies: fatigue Hematological/Lymphatic: Denies: easy bleeding, easy bruising Allergic/Immunologic: Denies: facial swelling, urticaria Past Medical History - Past Medical History Attestation: Yes The following information was validated with the patient. Source: patient, nursing notes reviewed Medical history: Reports: arthritis, cirrhosis, DVT, diabetes, GERD, hyperlipidemia, hypertension, seizures, other Surgical history: Reports: IVC Filter Psychiatric history: Reports: schizophrenia, other - Social History Smoking Status: Never smoker Smokeless Tobacco Status: No Alcohol use: Reports: none Drug use: Reports: none Physical Exam - General Limitations: no limitations General appearance: alert, in no apparent distress - Head Head exam: atraumatic, normocephalic, normal inspection - Eye Eye exam: Present: normal appearance, PERRL, EOMI - ENT ENT exam: normal exam, normal oropharynx, mucous membranes moist - Neck Neck exam: Present: normal inspection, full ROM, trachea midline - Chest Chest inspection: Present: normal inspection, symmetric chest wall rise - Respiratory Respiratory exam: Present: normal lung sounds bilaterally - Cardiovascular Cardiovascular exam: Present: regular rate, normal rhythm, normal heart sounds - Abdominal Exam Abdominal exam: Present: soft, tenderness, distention, normal bowel sounds Abdominal tenderness: Present: diffuse, mild - Extremities Exam Extremities exam: Present: normal inspection, full ROM. Absent: tenderness, ped al edema - Back Exam Back exam: Present: normal inspection, full ROM. Absent: tenderness - Neurological Exam Neurological exam: Present: alert - Psychiatric Psychiatric exam: Present: normal affect, normal mood - Skin Skin exam: Present: warm, dry, intact, normal color Course Vital Signs O2 Sat by Pulse Oximetry 95 04/15/19 18:35 Temperature 98.7 F 04/15/19 18:37 Pulse Rate 93 04/15/19 20:30 Respiratory Rate 16 04/15/19 20:30 Blood Pressure 119/62 04/15/19 20:30 O2 Sat by Pulse Oximetry 96 04/15/19 20:30 Oxygen Delivery Oxygen Delivery Nasal Cannula Medical Decision Making - MDM Narrative Medical decision making narrative: I reviewed the patient's medication list - Lab Data Lab results reviewed: Yes I reviewed the patient's lab results. Result diagrams: 04/15/19 18:53 04/15/19 18:53 Lab Results 04/15/19 04/15/19 04/15/19 Range/Units 18:53 18:53 18:53 WBC 2.7 L (4.3-11.1) K/mcL RBC 2.22 L (4.19-5.50) M/mcL Hgb 6.3 L (12.9-16.9) g/dL Hct 21.0 L (37.5-50.1) % MCV 94.6 (83.0-100.0) fL MCH 28.4 (28.0-33.3) pg MCHC 30.0 L (31.6-35.5) g/dL RDW 14.1 (11.5-14.5) % Plt Count 72 L (140-400) K/mcL MPV 10.8 (9.4-12.4) fL Immature Gran % 0.4 (0-4) % Seg Neutrophils % 65.4 % Lymphocytes % 17.6 % Monocytes % 7.0 % Eosinophils % 9.2 % Basophils % 0.4 % Neutrophils # 1.8 (1.6-8.9) K/mcL Lymphocytes # 0.5 L (0.6-4.6) K/mcL Monocytes # 0.2 (0.0-1.3) K/mcL Eosinophils # 0.3 (0.0-0.6) K/mcL Basophils # 0.0 (0.0-0.2) K/mcL Sodium 138 (136-145) mEq/L Potassium 3.7 (3.5-5.1) mEq/L Chloride 103 (98-107) mEq/L Carbon Dioxide 30 H (23-29) mEq/L BUN 11 (6-20) mg/dL Creatinine 0.66 L (0.70-1.30) mg/dL Est GFR ( Amer) > 60 (> 60) Est GFR (Non-Af Amer) > 60 (> 60) BUN/Creatinine Ratio 17 (6-26) Glucose 219 H (70-105) mg/dL Calculated Osmolality 292 (280-300) Calcium 8.4 L (8.6-10.3) mg/dL Total Bilirubin 0.3 (0.3-1.0) mg/dL AST 19 (13-39) Units/L ALT 16 (7-52) Units/L Alkaline Phosphatase 67 (34-104) Units/L Troponin I < 0.03 (< 0.04) ng/mL Serum Total Protein 5.2 L (6.4-8.9) g/dL Albumin 3.1 L (3.5-5.7) g/dL Globulin 2.1 L (2.4-3.5) g/dL Albumin/Globulin Ratio 1.5 (1.1-2.2) Amylase 31 (29-103) Units/L Lipase 58 (11-82) Units/L Stool Occult Blood (Negative) Blood Type Antibody Screen Crossmatch 04/15/19 04/15/19 Range/Units 18:53 20:00 WBC (4.3-11.1) K/mcL RBC (4.19-5.50) M/mcL Hgb (12.9-16.9) g/dL Hct (37.5-50.1) % MCV (83.0-100.0) fL MCH (28.0-33.3) pg MCHC (31.6-35.5) g/dL RDW (11.5-14.5) % Plt Count (140-400) K/mcL MPV (9.4-12.4) fL Immature Gran % (0-4) % Seg Neutrophils % % Lymphocytes % % Monocytes % % Eosinophils % % Basophils % % Neutrophils # (1.6-8.9) K/mcL Lymphocytes # (0.6-4.6) K/mcL Monocytes # (0.0-1.3) K/mcL Eosinophils # (0.0-0.6) K/mcL Basophils # (0.0-0.2) K/mcL Sodium (136-145) mEq/L Potassium (3.5-5.1) mEq/L Chloride (98-107) mEq/L Carbon Dioxide (23-29) mEq/L BUN (6-20) mg/dL Creatinine (0.70-1.30) mg/dL Est GFR ( Amer) (> 60) Est GFR (Non-Af Amer) (> 60) BUN/Creatinine Ratio (6-26) Glucose (70-105) mg/dL Calculated Osmolality (280-300) Calcium (8.6-10.3) mg/dL Total Bilirubin (0.3-1.0) mg/dL AST (13-39) Units/L ALT (7-52) Units/L Alkaline Phosphatase (34-104) Units/L Troponin I (< 0.04) ng/mL Serum Total Protein (6.4-8.9) g/dL Albumin (3.5-5.7) g/dL Globulin (2.4-3.5) g/dL Albumin/Globulin Ratio (1.1-2.2) Amylase (29-103) Units/L Lipase (11-82) Units/L Stool Occult Blood Negative (Negative) Blood Type A NEGATIVE Antibody Screen NEGATIVE Crossmatch See Detail - Radiology Data Radiology results reviewed: Yes I reviewed the patient's radiology results. - EKG Data EKG #1 EKG attestation: Yes I reviewed and interpreted this EKG. EKG results narrative: EKG shows a relative sinus tachycardia 3-102 bpm. Intervals 120 ms. QRS duration 83 ms. QT QTC intervals 347 and 452 ms each. R axis 39 degrees. No acute ischemia is appreciated.
[2019-04-15 19:02] LABS: Basophils % 0.4 %; Eosinophils # 0.3 K/mcL (0.0-0.6); Eosinophils % 9.2 %; Hemoglobin 6.3 g/dL (12.9-16.9); Immature Granulocytes % 0.4 % (0-4); Lymphocytes # 0.5 K/mcL (0.6-4.6); Lymphocytes % 17.6 %; Mean Corpuscular Hemoglobin 28.4 pg (28.0-33.3); Mean Corpuscular Volume 94.6 fL (83.0-100.0); Mean Platelet Volume 10.8 fL (9.4-12.4); Monocytes # 0.2 K/mcL (0.0-1.3); Neutrophils # 1.8 K/mcL (1.6-8.9); Platelet Count 72 K/mcL (140-400); Red Blood Count 2.22 M/mcL (4.19-5.50); Red Cell Distribution Width 14.1 % (11.5-14.5); Segmented Neutrophils % 65.4 %; White Blood Count 2.7 K/mcL (4.3-11.1)
[2019-04-15 19:17] LABS: Alanine Aminotransferase 16 Units/L (7-52); Albumin 3.1 g/dL (3.5-5.7); Albumin/Globulin Ratio 1.5 (1.1-2.2); Alkaline Phosphatase 67 Units/L (34-104); Amylase 31 Units/L (29-103); Aspartate Amino Transferase 19 Units/L (13-39); BUN/Creatinine Ratio 17 (6-26); Bilirubin,Total 0.3 mg/dL (0.3-1.0); Blood Urea Nitrogen 11 mg/dL (6-20); Calcium 8.4 mg/dL (8.6-10.3); Carbon Dioxide 30 mEq/L (23-29); Chloride 103 mEq/L (98-107); Globulin 2.1 g/dL (2.4-3.5); Glucose 219 mg/dL (70-105); Lipase 58 Units/L (11-82); Osmolality,Calculated 292 (280-300); Potassium 3.7 mEq/L (3.5-5.1); Sodium 138 mEq/L (136-145); Total Protein 5.2 g/dL (6.4-8.9); eGFR For African Americans > 60 (> 60); eGFR For Non-African Americans > 60 (> 60)
[2019-04-15] MEDS ORDERED: Nitroglycerin 0.4 MG TAB.SUBL SL PRN (22:04)
[2019-04-15] MEDS ORDERED: risperiDONE 0.25 MG TABLET PO SCH (22:04)
[2019-04-15] MEDS ORDERED: hydrOXYzine pamoate 25 MG CAPSULE PO PRN (22:04)
[2019-04-15] MEDS ORDERED: Naloxone 0.4 MG/ML INJ IVP PRN (22:04)
[2019-04-15] MEDS ORDERED: *HR* Metformin 500 MG TABLET PO SCH (22:04)
[2019-04-15] MEDS ORDERED: *HR* OxyCODONE Immed Rel 5 MG TABLET PO PRN (22:04)
[2019-04-15] MEDS ORDERED: tiZANidine 4 MG TABLET PO PRN (22:04)
[2019-04-15] MEDS ORDERED: Mag Hydrox/Al Hydrox/Simeth 30 ML UDC PO PRN (22:04)
[2019-04-15] MEDS ORDERED: Lactulose 200 GM/300 ML (for enema) RC PRN (22:04)
[2019-04-15] MEDS ORDERED: 0.9 % Sodium Chloride 500 ML ONE (22:25)
[2019-04-15] MEDS ORDERED: Lactulose 200 GM, Sodium Chloride IRRigation 700 ML RC PRN (22:48)
[2019-04-15] MEDS: FluocinoNIDE 0.05% CRM 15 GM TUBE TP SCH (23:00)
[2019-04-15] MEDS: Sucralfate 1 GM TABLET PO SCH (23:33)
[2019-04-15] MEDS: tiZANidine 4 MG TABLET PO SCH (23:33)
[2019-04-15] MEDS: Topiramate 25 MG TABLET PO SCH (23:34)
[2019-04-16] MEDS ORDERED: Furosemide 20 MG/2 ML VIAL IVP ONE (01:58)
[2019-04-16] MEDS ORDERED: Albuterol 2.5 MG/3 ML NEBULIZER IH PRN (03:30)
[2019-04-16 06:44] LABS: Basophils % 0.8 %; Eosinophils # 0.1 K/mcL (0.0-0.6); Eosinophils % 1.6 %; Immature Granulocytes % 0.2 % (0-4); Lymphocytes # 0.5 K/mcL (0.6-4.6); Lymphocytes % 10.1 %; Mean Corpuscular Hemoglobin 28.3 pg (28.0-33.3); Mean Corpuscular Volume 97.5 fL (83.0-100.0); Mean Platelet Volume 10.5 fL (9.4-12.4); Monocytes # 0.5 K/mcL (0.0-1.3); Monocytes % 10.3 %; Neutrophils # 3.9 K/mcL (1.6-8.9); Platelet Count 62 K/mcL (140-400); Red Blood Count 3.18 M/mcL (4.19-5.50); Red Cell Distribution Width 14.7 % (11.5-14.5)
[2019-04-16 07:02] LABS: BUN/Creatinine Ratio 17 (6-26); Blood Urea Nitrogen 11 mg/dL (6-20); Calcium 8.2 mg/dL (8.6-10.3); Carbon Dioxide 24 mEq/L (23-29); Chloride 104 mEq/L (98-107); Glucose 144 mg/dL (70-105); Osmolality,Calculated 288 (280-300); Potassium 4.3 mEq/L (3.5-5.1); Sodium 138 mEq/L (136-145); eGFR For African Americans > 60 (> 60); eGFR For Non-African Americans > 60 (> 60)
[2019-04-16 07:07] LABS: Bilirubin,Urine Negative (Negative); Blood,Urine Negative (Negative); Clarity,Urine Clear (Clear); Color,Urine Yellow (Yellow); Glucose,Urine (UA) Normal (Normal); Ketones,Urine Negative (Negative); Leukocyte Esterase,Urine Negative (Negative); Nitrite,Urine Negative (Negative); PH,Urine 5.5 pH Units (5.0-8.0); Protein,Urine Negative (Neg-Trace); Specific Gravity,Urine 1.015 (1.010-1.025); Urobilinogen,Urine Normal (Normal)
--- NOTE | 2019-04-16 09:28 | Electrocardiograph Report ---
[place] [id number] Test Date: 2019-04-15 Pat Name: Melvin Rojo Department: EDP-14 Room: [facility] Gender: M [employer] Editor: : 1965 Requested By: Franklin Call Order Number: [id number] Reading MD: Kaya Bernstein Measurements Intervals [place] Rate: 102 P: 3 TN: 120 QRS: 39 QRSD: 83 T: 14 QT: 347 QTc: 452 Interpretive Statements Sinus tachycardia Borderline low voltage, extremity leads Electronically Signed On 04-16-2019 9:26:38 EDT by Kaya Bernstein
[2019-04-16] MEDS: Potassium Chloride Elixir 20 MEQ/15 ML UDC PO SCH (11:13)
[2019-04-16] MEDS: Metoprolol XL (24 HR) Succ 50 MG TAB.ER.24H PO SCH (11:15)
[2019-04-16] MEDS: *HR* Rivaroxaban 10 MG TABLET PO SCH (11:15)
[2019-04-16] MEDS: Sennosides 8.6 MG TABLET PO SCH (11:15)
[2019-04-16] MEDS: Bumetanide 1 MG TABLET PO SCH (11:15)
[2019-04-16] MEDS: *HR* Metformin 500 MG TABLET PO SCH ×2 (11:15→17:19)
[2019-04-16] MEDS: Ascorbic Acid 500 MG TABLET PO SCH (11:16)
[2019-04-16] MEDS: Multivit/Ca/Min/Fe/FA 1 TAB TABLET PO SCH (11:16)
[2019-04-16] MEDS: Sucralfate 1 GM TABLET PO SCH ×2 (11:16→22:13)
[2019-04-16] MEDS: tiZANidine 4 MG TABLET PO SCH ×3 (11:56→22:13)
[2019-04-16] MEDS: Topiramate 25 MG TABLET PO SCH ×2 (12:11→22:13)
[2019-04-16] MEDS: Fluticasone Propionate Nasal 50 MCG/SPRAY BOTTLE NS SCH (12:12)
[2019-04-16] MEDS: FluocinoNIDE 0.05% CRM 15 GM TUBE TP SCH ×3 (12:12→22:20)
[2019-04-16] MEDS: risperiDONE 1 MG TABLET PO SCH ×2 (12:12→22:13)
--- NOTE | 2019-04-16 16:22 | Internal Med History&Physical ---
Date of Encounter: 04/16/19 Time of Encounter: 15:30 Assessment and Plan (1) Anemia Current visit: Yes Status: Acute Etiology uncertain. 2 units packed red blood cells have been transfused. Stool guaiac will be repeated. Iron profile will be ordered. Qualifiers: Anemia type: unspecified type Qualified Code(s): D64.9 - Anemia, unspecified (2) Cellulitis Current visit: Yes Status: Acute Start oral Keflex with lactobacillus. Qualifiers: Site of cellulitis: trunk Site of cellulitis of trunk: abdominal wall Qualified Code(s): L03.311 - Cellulitis of abdominal wall (3) History of DVT (deep vein thrombosis) Current visit: No Status: Acute Continue Xarelto. (4) Pneumonia Current visit: Yes Status: Acute Abdominal CT in the ER showed probable infiltrates in bilateral lung bases. Chest CT will be done to further evaluate. Qualifiers: Pneumonia type: due to unspecified organism Laterality: bilateral Lung location: lower lobe of lung Qualified Code(s): J18.1 - Lobar pneumonia, unspecified organism Internal Medicine - H&P: HPI Chief complaint: Anemia Admitted From: Emergency Dept Plans for Post Hospital Care: Home History of present illness: Mr. Rojo is a 54 year old male who was sent to emergency room after labs drawn earlier the day showed hemoglobin 6.0. Anemia was confirmed in emergency room with hemoglobin 6.3. Stool was guaiac negative. He was admitted to [facility] floor for blood transfusions and ongoing care needs. He denies vomiting, melena or hematochezia. He has history of cirrhosis etiology undetermined with anemia present on most labs since June 2014. He states he saw a hand tier/oncologist in [place] several months ago but does not know details of the visit. He complains of mild abdominal discomfort at present time but denies dyspnea. He was hospitalized [place] 3 weeks ago at [facility] with hepatic encephalopathy. He was changed from Coumadin to Xarelto at discharge since INR was difficult to maintain in therapeutic range. He has chronic thrombocytopenia but denies known internal malignancies. Past Med Surg Social Fam HX - Past Medical History Medical history: arthritis, cirrhosis, DVT, diabetes, GERD, hyperlipidemia, hypertension, seizures, other Additional medical history: factor V. tremors. anemia. DVT Psychiatric history: schizophrenia, other - Past Surgical History Surgical History: IVC Filter Additional surgical history: perlita filter - Social History Smoking Status: Never smoker Smokeless Tobacco Status: No Alcohol use: none Drug use: none Internal Medicine - H&P: Meds Docusate [Colace] 100 mg PO BID PRN 02/20/17 [History] Fluticasone Propionate Nasal [Flonase] 1 spray NS DAILY 02/20/17 [History] Lactulose 45 ml PO DAILY PRN 02/20/17 [History] Metformin HCl [Glucophage] 1,000 mg PO BID 02/20/17 [History] Metoprolol XL (24 HR) Succ [Toprol Xl] 50 mg PO DAILY 02/20/17 [History] Multivit-Min/Iron Fum/Folic AC [Bdnbq-Tjkiuob-Bkjqgzfw Tablet] 1 tab PO DAILY 02/20/17 [History] Nitroglycerin [Nitrostat] 0.4 mg SL AD PRN 02/20/17 [History] Oxycodone HCl [Oxycodone HCl ER] 15 mg PO Q8H PRN 02/20/17 [History] Pravastatin Sodium [Pravachol] 40 mg PO DAILY 02/20/17 [History] Sennosides [Senna] 8.6 mg PO DAILY 02/20/17 [History] Tizanidine HCl [Zanaflex] 2 mg PO TID PRN 02/20/17 [History] Trihexyphenidyl HCl 2 mg PO BID 02/20/17 [History] hydrOXYzine HCl [Hydroxyzine HCl] 50 mg PO TID PRN 02/20/17 [History] risperiDONE [RisperDAL] 1 mg PO BID 02/20/17 [History] Betamethasone/Propylene Glyc [Betamethasone Dp Aug 0.05% Lot] 1 appl TP TID 05/22/17 [History] Mag Hydrox/Aluminum Hyd/Simeth [Cvs Antacid-Antigas Liquid] 15 ml PO Q4H PRN 05/22/17 [History] Mag Hydrox/Aluminum Hyd/Simeth [Cvs Antacid Plus Anti-Gas Liq] 15 ml PO Q4H PRN 11/13/17 [History] Omeprazole [PriLOSEC] 40 mg PO DAILY 11/13/17 [History] Ascorbic Acid [C-500] 500 mg PO DAILY 365 Days tablet 10/08/18 [Rx] Dicyclomine [Bentyl] 10 mg PO TID 03/24/19 [History] Ferrous Sulfate 325 mg PO BID 03/24/19 [History] GuaiFENesin/Dextromethorphan [Robitussin/Dm] 5 ml PO Q4HR 03/24/19 [History] Ketoconazole Shampoo [Nizoral Shampoo] 0 ml TP 3XW 03/24/19 [History] Sucralfate [Carafate] 1 gm PO BID 03/24/19 [History] Tizanidine HCl [Zanaflex] 4 mg PO TID 03/24/19 [History] Topiramate [Topamax] 50 mg PO BID 03/24/19 [History] Triamcinolone Acet 0.1% OINT [Kenalog] 1 appl TP BID 03/24/19 [History] Bumetanide [Bumex] 1 mg PO DAILY tablet 03/26/19 [Rx] Potassium Chloride 10 meq PO DAILY 365 Days tab.er.prt 03/26/19 [Rx] Rifaximin [Xifaxan] 550 mg PO BID tablet 03/26/19 [Rx] Rivaroxaban [Xarelto] 20 mg PO DAILY tablet 03/26/19 [Rx] Allergy/AdvReac Type Severity Reaction Status Date / Time No Known Allergies Allergy Verified 04/15/19 20:28 All Systems PM: A 10-system review of systems was performed and is negative for pertinent findings except as documented above in the HPI. Review of systems: Review of systems from his earlier March 2019 [facility] hospitalization were reviewed and revised as below. Gen.: His weight has increased from 117.39 kg on 10/07/2018 to 136.588 kg on admission now Cardiovascular: He has history of hypertension. He has history of DVT but does not recall details. He denies [place] heart failure angina or pulmonary embolus Respiratory: He states he is a lifelong nonsmoker and denies chronic lung disease GI: He has diagnosis of cirrhosis but does not know if etiology has been determined. He denies disorders of his gallbladder or exocrine pancreas. : He denies hematuria dysuria or kidney stones Neurologic: He is uncertain if he has history of seizures. He denies large distribution strokes. Endocrine: He has history of DM 2 and hyperlipidemia. He denies thyroid d isease. Hematology/oncology: As per history of present illness Psychiatric: He has history of psychosis but he cannot give details. [place] skeletal: He states he has arthritis but denies gout or other bone joint or muscle disorders. - Constitutional Vitals: Temp Pulse Resp BP Pulse Ox 98.8 F 96 18 118/72 100 04/16/19 15:18 04/16/19 15:18 04/16/19 15:18 04/16/19 15:18 04/16/19 15:18 Exam: Gen.: He is a well-developed well-nourished male resting comfortably in bed who appears in no acute distress HEENT: Head is atraumatic and normocephalic. Eyes: EOMI. There is no scleral icterus. Mouth: Mucosa is moist. Neck: Supple and nontender. There is no thyromegaly or adenopathy noted. Heart: Regular without murmurs gallops or ectopics Lungs: No wheezes or crackles are heard. Abdomen: He has diffuse erythema of his lower abdominal wall which is slightly warm to touch. The borders are somewhat indistinct. He has a 15 mm umbilical hernia that is nonpainful to palpation. No masses or guarding are noted. Bowel sounds are present. Extremities: He has chronic venous stasis erythema of the right lower leg with woody edema. He has 1-2+ edema of the dorsum of the feet and lower legs bilaterally. Neurologic: Mental status: He is talkative and a fair historian. He does not remember many details of his past history. Cranial nerves: Smile is symmetric. Forehead wrinkles bilaterally. Tongue protrudes midline. EOMI. Motor: There is no pronator drift. Cerebellar: Finger to nose is intact bilaterally. Skin: Warm and dry Internal Med - H&P Results - Labs CBC & Chem 7: 04/16/19 06:38 04/16/19 06:38 Labs: Short CBC 04/15/19 04/16/19 Range/Units 18:53 06:38 WBC 2.7 L 5.0 D (4.3-11.1) K/mcL Hgb 6.3 L 9.0 L D (12.9-16.9) g/dL Hct 21.0 L 31.0 L (37.5-50.1) % Plt Count 72 L 62 L (140-400) K/mcL Neutrophils # 1.8 3.9 (1.6-8.9) K/mcL BMP 04/15/19 04/16/19 18:53 06:38 Sodium 138 138 Potassium 3.7 4.3 Chloride 103 104 Carbon Dioxide 30 H 24 BUN 11 11 Creatinine 0.66 L 0.65 L Glucose 219 H 144 H Calcium 8.4 L 8.2 L Cardiac Enzymes 04/15/19 Range/Units 18:53 Troponin I < 0.03 (< 0.04) ng/mL Liver Function 04/15/19 Range/Units 18:53 Total Bilirubin 0.3 (0.3-1.0) mg/dL AST 19 (13-39) Units/L ALT 16 (7-52) Units/L Alkaline Phosphatase 67 (34-104) Units/L Albumin 3.1 L (3.5-5.7) g/dL Urine 04/16/19 Range/Units 03:30 Urine Color Yellow (Yellow) Urine Clarity Clear (Clear) Urine pH 5.5 (5.0-8.0) pH Units Ur Specific [place] 1.015 (1.010-1.025) Urine Protein Negative (Neg-Trace) mg/dL Urine Glucose (UA) Normal (Normal) mg/dL - Impressions ITS Impressions Abdomen/Pelvis CT 04/15/19 18:41 IMPRESSION: Moderate volume ascites, increased. Cirrhosis and portal hypertension. Patchy consolidation in the lung bases, slightly progressed. Findings may be related to worsening atelectasis or infection. D/ / Alexa Abbott MD / Alexa Abbott MD Interpreting Provider: Alexa Abbott MD Chest X-Ray 04/15/19 18:41 IMPRESSION: Marked elevation of the hemidiaphragms with resulting basilar atelectasis redemonstrated. D/ / Zach King MD / Zach King MD Interpreting Provider: Zach King MD
[2019-04-16] MEDS: cephALEXin 500 MG CAPSULE PO SCH ×2 (17:24→22:13)
[2019-04-16] MEDS: Lactobacillus 1 EACH CAP.SPRINK PO SCH (22:13)
[2019-04-17 06:09] LABS: Basophils % 0.7 %; Eosinophils # 0.2 K/mcL (0.0-0.6); Hemoglobin 7.4 g/dL (12.9-16.9); Immature Granulocytes % 0.2 % (0-4); Lymphocytes # 0.5 K/mcL (0.6-4.6); Lymphocytes % 12.2 %; Mean Corpuscular HGB Conc 29.6 g/dL (31.6-35.5); Mean Corpuscular Hemoglobin 28.1 pg (28.0-33.3); Mean Corpuscular Volume 95.1 fL (83.0-100.0); Mean Platelet Volume 10.4 fL (9.4-12.4); Monocytes # 0.3 K/mcL (0.0-1.3); Red Blood Count 2.63 M/mcL (4.19-5.50); Red Cell Distribution Width 14.6 % (11.5-14.5); Segmented Neutrophils % 73.9 %
[2019-04-17 06:15] LABS: Platelet Count 71 K/mcL (140-400)
[2019-04-17] MEDS: *HR* Rivaroxaban 10 MG TABLET PO SCH (08:57)
[2019-04-17] MEDS: Sucralfate 1 GM TABLET PO SCH ×2 (08:57→20:12)
[2019-04-17] MEDS: cephALEXin 500 MG CAPSULE PO SCH ×3 (08:57→20:12)
[2019-04-17] MEDS: *HR* Metformin 500 MG TABLET PO SCH ×2 (08:57→17:36)
[2019-04-17] MEDS: Potassium Chloride Elixir 20 MEQ/15 ML UDC PO SCH (08:57)
[2019-04-17] MEDS: Topiramate 25 MG TABLET PO SCH ×2 (08:58→20:11)
[2019-04-17] MEDS: Metoprolol XL (24 HR) Succ 50 MG TAB.ER.24H PO SCH (08:58)
[2019-04-17] MEDS: Ascorbic Acid 500 MG TABLET PO SCH (08:58)
[2019-04-17] MEDS: tiZANidine 4 MG TABLET PO SCH ×3 (08:58→20:12)
[2019-04-17] MEDS: Lactobacillus 1 EACH CAP.SPRINK PO SCH ×2 (08:59→20:11)
[2019-04-17] MEDS: Multivit/Ca/Min/Fe/FA 1 TAB TABLET PO SCH (08:59)
[2019-04-17] MEDS: Bumetanide 1 MG TABLET PO SCH (08:59)
[2019-04-17] MEDS: risperiDONE 1 MG TABLET PO SCH ×2 (08:59→20:11)
[2019-04-17] MEDS: Sennosides 8.6 MG TABLET PO SCH (09:00)
[2019-04-17] MEDS: Fluticasone Propionate Nasal 50 MCG/SPRAY BOTTLE NS SCH (09:00)
[2019-04-17] MEDS: FluocinoNIDE 0.05% CRM 15 GM TUBE TP SCH ×3 (09:00→20:13)
[2019-04-17 09:45] LABS: % Iron Saturation 4 % (20-55); Ferritin < 8 ng/mL (20-250); Iron 18 mcg/dL (65-175); Transferrin 318 mg/dL (203-362)
--- NOTE | 2019-04-17 11:09 | Internal Med Progress Note ---
Date of Encounter: 04/17/19 Time of Encounter: 10:55 - Assessment and plan (1) Anemia Current Visit: Yes Status: Acute Assessment and plan: April 17. Hemoglobin has decreased to 7.4. Stool guaiac has been ordered. Iron profile shows iron 18, transferrin saturation 4%, transferrin 318, and ferritin< 8. He will be given iron dextran infusion. LDH and serum haptoglobin will be ordered. Qualifiers: Anemia type: unspecified type Qualified Code(s): D64.9 - Anemia, unspecif ied (2) Cellulitis Current Visit: Yes Status: Acute Assessment and plan: April 17. Improved. Continue Keflex with lactobacillus. Qualifiers: Site of cellulitis: trunk Site of cellulitis of trunk: abdominal wall Qualified Code(s): L03.311 - Cellulitis of abdominal wall (3) History of DVT (deep vein thrombosis) Current Visit: No Status: Acute Assessment and plan: April 17. Continue Xarelto (4) Pneumonia Current Visit: Yes Status: Acute Assessment and plan: April 17. Chest CT showed findings favoring atelectasis rather than pneumonia. Continue present Rx. Qualifiers: Pneumonia type: due to unspecified organism Laterality: bilateral Lung location: lower lobe of lung Qualified Code(s): J18.1 - Lobar pneumonia, u nspecified organism (5) DM type 2 (diabetes mellitus, type 2) Current Visit: No Status: Chronic Assessment and plan: April 17. Hemoglobin A1c 5.0% on 02/05/2019. Accu-Cheks reviewed. Attempt decrease of metformin to 500 mg twice a day and monitor blood sugars. 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 He has no new complaints. He denies pain or dyspnea. - Constitutional Vitals: Temp Pulse Resp BP Pulse Ox 98.9 F 84 18 96/61 96 04/17/19 10:39 04/17/19 10:39 04/17/19 10:39 04/17/19 10:39 04/17/19 10:39 Exam: He is resting comfortably in bed and appears in no acute distress. He is appropriate in conversation. Lower abdominal wall shows decreased erythema and is nontender to palpation. Extremity edema is not significantly changed. I reviewed his medications and lab results. Internal Medicine: Result - Labs CBC & Chem 7: 04/17/19 05:55 04/16/19 06:38 Labs: Short CBC 04/17/19 Range/Units 05:55 WBC 4.0 L (4.3-11.1) K/mcL Hgb 7.4 L D (12.9-16.9) g/dL Hct 25.0 L (37.5-50.1) % Plt Count 71 L (140-400) K/mcL Neutrophils # 3.0 (1.6-8.9) K/mcL - Impressions Impressions Chest CT 04/16/19 16:40 IMPRESSION: As seen on the CT the abdomen pelvis, there is increased collapse and consolidation seen within the lower lungs, especially on the left. Given the lack of significant parapneumonic effusion, and given elevation of the hemidiaphragms, atelectasis is considered most likely. Nonetheless, developing pneumonia and aspiration remain less likely differential considerations. D/ / Joe oByd MD / Joe Boyd MD Interpreting Provider: Joe Boyd MD Consult Discharge Plan - Plan Referrals: Avni Jackson MD [Primary Care Provider] - 1 week
[2019-04-17] MEDS ORDERED: SODIUM CHLORIDE 0.9% IVPB ONE (13:00)
[2019-04-17] MEDS ORDERED: IRON DEXTRAN COMPLEX IVPB ONE (13:00)
[2019-04-17] MEDS ORDERED: Acetaminophen 325 MG TABLET PO PRN (22:14)
[2019-04-18 06:44] LABS: Basophils % 0.7 %; Eosinophils # 0.3 K/mcL (0.0-0.6); Eosinophils % 7.1 %; Hematocrit 23.4 % (37.5-50.1); Hemoglobin 7.1 g/dL (12.9-16.9); Immature Granulocytes % 0.5 % (0-4); Lymphocytes # 0.7 K/mcL (0.6-4.6); Lymphocytes % 15.6 %; Mean Corpuscular HGB Conc 30.3 g/dL (31.6-35.5); Mean Corpuscular Hemoglobin 28.4 pg (28.0-33.3); Mean Corpuscular Volume 93.6 fL (83.0-100.0); Mean Platelet Volume 10.5 fL (9.4-12.4); Monocytes # 0.4 K/mcL (0.0-1.3); Monocytes % 8.3 %; Red Cell Distribution Width 14.6 % (11.5-14.5); Segmented Neutrophils % 67.8 %; White Blood Count 4.4 K/mcL (4.3-11.1)
[2019-04-18 07:00] LABS: Platelet Count 74 K/mcL (140-400)
[2019-04-18 07:09] LABS: BUN/Creatinine Ratio 25 (6-26); Blood Urea Nitrogen 15 mg/dL (6-20); Calcium 8.3 mg/dL (8.6-10.3); Carbon Dioxide 33 mEq/L (23-29); Chloride 100 mEq/L (98-107); Glucose 174 mg/dL (70-105); Magnesium 2.1 mg/dL (1.6-2.6); Osmolality,Calculated 289 (280-300); Potassium 3.8 mEq/L (3.5-5.1); Sodium 137 mEq/L (136-145); eGFR For African Americans > 60 (> 60); eGFR For Non-African Americans > 60 (> 60)
[2019-04-18 07:13] LABS: Platelet Estimate Decreased (Normal)
[2019-04-18] MEDS: Topiramate 25 MG TABLET PO SCH ×2 (09:11→21:15)
[2019-04-18] MEDS: *HR* Metformin 500 MG TABLET PO SCH ×2 (09:12→15:38)
[2019-04-18] MEDS: Metoprolol XL (24 HR) Succ 50 MG TAB.ER.24H PO SCH (09:12)
[2019-04-18] MEDS: Sennosides 8.6 MG TABLET PO SCH (09:12)
[2019-04-18] MEDS: Potassium Chloride Elixir 20 MEQ/15 ML UDC PO SCH (09:13)
[2019-04-18] MEDS: Sucralfate 1 GM TABLET PO SCH ×2 (09:13→21:16)
[2019-04-18] MEDS: cephALEXin 500 MG CAPSULE PO SCH ×2 (09:13→15:38)
[2019-04-18] MEDS: Multivit/Ca/Min/Fe/FA 1 TAB TABLET PO SCH (09:14)
[2019-04-18] MEDS: *HR* Rivaroxaban 10 MG TABLET PO SCH (09:14)
[2019-04-18] MEDS: Bumetanide 1 MG TABLET PO SCH (09:14)
[2019-04-18] MEDS: Lactobacillus 1 EACH CAP.SPRINK PO SCH (09:14)
[2019-04-18] MEDS: tiZANidine 4 MG TABLET PO SCH ×3 (09:14→21:15)
[2019-04-18] MEDS: Fluticasone Propionate Nasal 50 MCG/SPRAY BOTTLE NS SCH (09:15)
[2019-04-18] MEDS: risperiDONE 1 MG TABLET PO SCH ×2 (09:15→21:16)
[2019-04-18] MEDS: FluocinoNIDE 0.05% CRM 15 GM TUBE TP SCH ×3 (09:15→21:16)
--- NOTE | 2019-04-18 17:42 | Internal Med Progress Note ---
Date of Encounter: 04/18/19 Time of Encounter: 17:35 - Assessment and plan (1) Anemia Current Visit: Yes Status: Acute Assessment and plan: April 17. Hemoglobin has decreased to 7.4. Stool guaiac has been ordered. Iron profile shows iron 18, transferrin saturation 4%, transferrin 318, and ferritin< 8. He will be given iron dextran infusion. LDH and serum haptoglobin will be ordered. April 18. Hemoglobin has decreased to 7.1. No further stools have been documented to perform guaiac. Iron dextran infusion was tolerated well. LDH was low. Serum haptoglobin is pending. Qualifiers: Anemia type: unspecified type Qualified Code(s): D64.9 - Anemia, unspecified (2) Cellulitis Current Visit: Yes Status: Acute Assessment and plan: April 17. Improved. Continue Keflex with lactobacillus. April 18. Resolved. Discontinue Keflex with lactobacillus. Qualifiers: Site of cellulitis: trunk Site of cellulitis of trunk: abdominal wall Qualified Code(s): L03.311 - Cellulitis of abdominal wall (3) History of DVT (deep vein thrombosis) Current Visit: No Status: Acute Assessment and plan: April 17. Continue Xarelto April 18. He has been on anticoagulant for several years. In view of worsening a nemia will hold Xarelto and check d-dimer. (4) Pneumonia Current Visit: Yes Status: Acute Assessment and plan: April 17. Chest CT showed findings favoring atelectasis rather than pneumonia. Continue present Rx. April 18. Discontinue Keflex and lactobacillus. Qualifiers: Pneumonia type: due to unspecified organism Laterality: bilateral Lung location: lower lobe of lung Qualified Code(s): J18.1 - Lobar pneumonia, unspecified organism (5) DM type 2 (diabetes mellitus, type 2) Current Visit: No Status: Chronic Assessment and plan: April 17. Hemoglobin A1c 5.0% on 02/05/2019. Accu-Cheks reviewed. Attempt decrease of metformin to 500 mg twice a day and monitor blood sugars. 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 He has no new complaints. He denies pain or dyspnea. April 18. He has no new complaints. He denies pain or dyspnea. - Constitutional Vitals: Temp Pulse Resp BP Pulse Ox 98.2 F 88 16 113/66 96 04/18/19 14:19 04/18/19 14:19 04/18/19 14:04/18/19 14:04/18/19 14:19 Exam: He is resting comfortably in bed and appears in no acute distress. His affect is bright and cheerful. Abdominal wall shows complete resolution of erythema. Lower extremity edema appears unchanged. I reviewed his medications and lab results. Internal Medicine: Result - Labs CBC & Chem 7: 04/18/19 06:13 04/18/19 06:13 Labs: Short CBC 04/18/19 Range/Units 06:13 WBC 4.4 (4.3-11.1) K/mcL Hgb 7.1 L (12.9-16.9) g/dL Hct 23.4 L (37.5-50.1) % Plt Count 74 L (140-400) K/mcL Neutrophils # 3.0 (1.6-8.9) K/mcL BMP 04/18/19 06:13 Sodium 137 Potassium 3.8 Chloride 100 Carbon Dioxide 33 H BUN 15 Creatinine 0.61 L Glucose 174 H Calcium 8.3 L Consult Discharge Plan - Plan Referrals: Avni Jackson MD [Primary Care Provider] - 1 week
[2019-04-19 06:04] LABS: Basophils % 0.8 %; Eosinophils # 0.3 K/mcL (0.0-0.6); Eosinophils % 8.1 %; Hematocrit 23.5 % (37.5-50.1); Hemoglobin 7.1 g/dL (12.9-16.9); Immature Granulocytes % 0.5 % (0-4); Lymphocytes # 0.5 K/mcL (0.6-4.6); Lymphocytes % 12.4 %; Mean Corpuscular HGB Conc 30.2 g/dL (31.6-35.5); Mean Corpuscular Volume 92.5 fL (83.0-100.0); Mean Platelet Volume 10.3 fL (9.4-12.4); Monocytes # 0.3 K/mcL (0.0-1.3); Monocytes % 7.9 %; Red Blood Count 2.54 M/mcL (4.19-5.50); Red Cell Distribution Width 14.6 % (11.5-14.5); Segmented Neutrophils % 70.3 %; White Blood Count 3.9 K/mcL (4.3-11.1)
[2019-04-19 06:11] LABS: Neutrophils # 2.7 K/mcL (1.6-8.9); Platelet Count 67 K/mcL (140-400)
[2019-04-19 06:34] LABS: BUN/Creatinine Ratio 22 (6-26); Blood Urea Nitrogen 13 mg/dL (6-20); Calcium 8.3 mg/dL (8.6-10.3); Carbon Dioxide 33 mEq/L (23-29); Chloride 100 mEq/L (98-107); Glucose 115 mg/dL (70-105); Osmolality,Calculated 287 (280-300); Potassium 3.6 mEq/L (3.5-5.1); Sodium 138 mEq/L (136-145); eGFR For African Americans > 60 (> 60); eGFR For Non-African Americans > 60 (> 60)
[2019-04-19] MEDS: tiZANidine 4 MG TABLET PO SCH (07:48)
[2019-04-19] MEDS: Topiramate 25 MG TABLET PO SCH (07:48)
[2019-04-19] MEDS: Bumetanide 1 MG TABLET PO SCH (07:48)
[2019-04-19] MEDS: Multivit/Ca/Min/Fe/FA 1 TAB TABLET PO SCH (07:48)
[2019-04-19] MEDS: Sucralfate 1 GM TABLET PO SCH (07:48)
[2019-04-19] MEDS: Metoprolol XL (24 HR) Succ 50 MG TAB.ER.24H PO SCH (07:48)
[2019-04-19] MEDS: Sennosides 8.6 MG TABLET PO SCH (07:48)
[2019-04-19] MEDS: *HR* Metformin 500 MG TABLET PO SCH (07:48)
[2019-04-19] MEDS: risperiDONE 1 MG TABLET PO SCH (07:48)
[2019-04-19] MEDS: Fluticasone Propionate Nasal 50 MCG/SPRAY BOTTLE NS SCH (07:49)
--- NOTE | 2019-04-19 09:47 | Discharge Summary ---
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 Rojo is a 54 year old male who was sent to emergency room after labs drawn earlier the day showed hemoglobin 6.0. Anemia was confirmed in emergency room with hemoglobin 6.3. Stool was guaiac negative. He was admitted to [facility] for blood transfusions and ongoing care needs. Initial orders were written by the emergency room physician. I saw him on April 16 and performed a history and physical. He was given 2 units packed red blood cells. Hemoglobin janelle to 9.0 by the following day but decreased to 7.1 by April 18. Repeat stool testing was heme positive. Review of records show patient had esophageal varices with bleeding on EGD at [facility] September 2017. He reports a colonoscopy was done at [facility] 1-2 years previously. I told him he had recurrent bleeding and would likely continue to lose blood because of concurrent use of anticoagulant for history of DVT. He agreed to be transferred [facility] for further evaluation for GI bleed and need for ongoing anticoagulation. D-dimer returned elevated this morning at 1418. Iron profile returned showing iron 18, transferrin saturation 4%, transferrin 318, and ferritin < 8. He received iron dextran infusion which was tolerated well. He was given Keflex on admission for mild cellulitis of his lower abdominal wall. This resolved within 48 hours and antibiotics were not continued. Chest CT was done to further evaluate possible pneumonia. CT findings favored atelectasis and no additional antibiotics were given upon discontinuation of Keflex for abdominal wall cellulitis. Hemoglobin A1c was 5.0% on 02/05/2019. Metformin was reduced to 500 mg twice a day with blood sugars remaining satisfactorily controlled. - Time Spent with Patient Total time spent providing and/or coordinating discharge services: - Discharge Medications Prescriptions: No Action Tizanidine HCl [Zanaflex] 2 mg PO TID PRN PRN Reason: Muscle Spasm Docusate [Colace] 100 mg PO BID PRN PRN Reason: Constipation risperiDONE [RisperDAL] 1 mg PO BID Metoprolol XL (24 HR) Succ [Toprol Xl] 50 mg PO DAILY Trihexyphenidyl HCl 2 mg PO BID Sennosides [Senna] 8.6 mg PO DAILY Pravastatin Sodium [Pravachol] 40 mg PO DAILY Oxycodone HCl [Oxycodone HCl ER] 15 mg PO Q8H PRN PRN Reason: Pain Nitroglycerin [Nitrostat] 0.4 mg SL AD PRN PRN Reason: Chest Pain Multivit-Min/Iron Fum/Folic AC [Cewsc-Ezpaovo-Drkhdkre Tablet] 1 tab PO DAILY Metformin HCl [Glucophage] 1,000 mg PO BID Lactulose 45 ml PO DAILY PRN PRN Reason: Constipation hydrOXYzine HCl [Hydroxyzine HCl] 50 mg PO TID PRN PRN Reason: Itching Fluticasone Propionate Nasal [Flonase] 1 spray NS DAILY Betamethasone/Propylene Glyc [Betamethasone Dp Aug 0.05% Lot] 1 appl TP TID Mag Hydrox/Aluminum Hyd/Simeth [Cvs Antacid-Antigas Liquid] 15 ml PO Q4H PRN PRN Reason: Heartburn Omeprazole [PriLOSEC] 40 mg PO DAILY Mag Hydrox/Aluminum Hyd/Simeth [Cvs Antacid Plus Anti-Gas Liq] 15 ml PO Q4H PRN PRN Reason: Heartburn Ascorbic Acid [C-500] 500 mg PO DAILY 365 Days tablet Ferrous Sulfate 325 mg PO BID Tizanidine HCl [Zanaflex] 4 mg PO TID Triamcinolone Acet 0.1% OINT [Kenalog] 1 appl TP BID Topiramate [Topamax] 50 mg PO BID Sucralfate [Carafate] 1 gm PO BID GuaiFENesin/Dextromethorphan [Robitussin/Dm] 5 ml PO Q4HR Dicyclomine [Bentyl] 10 mg PO TID Ketoconazole Shampoo [Nizoral Shampoo] 0 ml TP 3XW Bumetanide [Bumex] 1 mg PO DAILY tablet Potassium Chloride 10 meq PO DAILY 365 Days tab.er.prt Rivaroxaban [Xarelto] 20 mg PO DAILY tablet Rifaximin [Xifaxan] 550 mg PO BID tablet Home Medications: Docusate [Colace] 100 mg PO BID PRN 02/20/17 [History] Fluticasone Propionate Nasal [Flonase] 1 spray NS DAILY 02/20/17 [History] Lactulose 45 ml PO DAILY PRN 02/20/17 [History] Metformin HCl [Glucophage] 1,000 mg PO BID 02/20/17 [History] Metoprolol XL (24 HR) Succ [Toprol Xl] 50 mg PO DAILY 02/20/17 [History] Multivit-Min/Iron Fum/Folic AC [Dvuzq-Qepxmva-Mkxrxujp Tablet] 1 tab PO DAILY 02/20/17 [History] Nitroglycerin [Nitrostat] 0.4 mg SL AD PRN 02/20/17 [History] Oxycodone HCl [Oxycodone HCl ER] 15 mg PO Q8H PRN 02/20/17 [History] Pravastatin Sodium [Pravachol] 40 mg PO DAILY 02/20/17 [History] Sennosides [Senna] 8.6 mg PO DAILY 02/20/17 [History] Tizanidine HCl [Zanaflex] 2 mg PO TID PRN 02/20/17 [History] Trihexyphenidyl HCl 2 mg PO BID 02/20/17 [History] hydrOXYzine HCl [Hydroxyzine HCl] 50 mg PO TID PRN 02/20/17 [History] risperiDONE [RisperDAL] 1 mg PO BID 02/20/17 [History] Betamethasone/Propylene Glyc [Betamethasone Dp Aug 0.05% Lot] 1 appl TP TID 05/22/17 [History] Mag Hydrox/Aluminum Hyd/Simeth [Cvs Antacid-Antigas Liquid] 15 ml PO Q4H PRN 05/22/17 [History] Mag Hydrox/Aluminum Hyd/Simeth [Cvs Antacid Plus Anti-Gas Liq] 15 ml PO Q4H PRN 11/13/17 [History] Omeprazole [PriLOSEC] 40 mg PO DAILY 11/13/17 [History] Ascorbic Acid [C-500] 500 mg PO DAILY 365 Days tablet 10/08/18 [Rx] Dicyclomine [Bentyl] 10 mg PO TID 03/24/19 [History] Ferrous Sulfate 325 mg PO BID 03/24/19 [History] GuaiFENesin/Dextromethorphan [Robitussin/Dm] 5 ml PO Q4HR 03/24/19 [History] Ketoconazole Shampoo [Nizoral Shampoo] 0 ml TP 3XW 03/24/19 [History] Sucralfate [Carafate] 1 gm PO BID 03/24/19 [History] Tizanidine HCl [Zanaflex] 4 mg PO TID 03/24/19 [History] Topiramate [Topamax] 50 mg PO BID 03/24/19 [History] Triamcinolone Acet 0.1% OINT [Kenalog] 1 appl TP BID 03/24/19 [History] Bumetanide [Bumex] 1 mg PO DAILY tablet 03/26/19 [Rx] Potassium Chloride 10 meq PO DAILY 365 Days tab.er.prt 03/26/19 [Rx] Rifaximin [Xifaxan] 550 mg PO BID tablet 03/26/19 [Rx] Rivaroxaban [Xarelto] 20 mg PO DAILY tablet 03/26/19 [Rx] Allergies/Adverse Reactions: Allergy/AdvReac Type Severity Reaction Status Date / Time No Known Allergies Allergy Verified 04/15/19 20:28 Date of admission: 04/17/19 11:14 Primary care physician: Avni Jackson MD - Constitutional Vitals: Temp Pulse Resp BP Pulse Ox 98.4 F 89 18 119/65 95 04/19/19 07:41 04/19/19 07:41 04/19/19 07:41 04/19/19 07:41 04/19/19 08:01 - Patient Status Disposition: Transfer Other Condition: Fair - Discharge Instructions
[2019-04-19 11:21] VITALS: BP 102/64
== END 2019-04-19 11:44 | disposition other institution (70) | DRG 378 ==
LOC: EMEROOPIK 18:30 → INPPIK 18:30
PROVIDERS: ADMIT Internal Medicine; ATTEND Internal Medicine